=== PATIENT | female | born 1970 | race Hispanic/Latino ===

== ENCOUNTER 2019-11-20 11:47 | Inpatient (IN) | payer MEDICAID ==
[~2019-11-20] VITALS: Ht 160 cm; Wt 153.1 kg
[2019-11-20 12:21] LABS: BASOPHILS % (AUTO) 0.4 % (0.0-5.0); EOSINOPHILS % (AUTO) 2.1 % (0.0-8.0); HEMATOCRIT 29.5 % (36-48); LYMPHOCYTES % (AUTO) 12.8 % (21.0-51.0); MEAN CORPUSCULAR HEMOGLOBIN 25.5 pg (27.0-33.0); MEAN CORPUSCULAR HGB CONC 30.5 g/dL (32.0-36.0); MEAN CORPUSCULAR VOLUME 83.6 fL (79-99); MONOCYTES % (AUTO) 7.1 % (3.0-13.0); NEUTROPHILS % (AUTO) 77.1 % (40.0-77.0); PLATELET COUNT (AUTO) 404 K/uL (130-400); RED BLOOD CELL COUNT(AUTO) 3.53 MIL/uL (4.00-5.50); RED CELL DISTRIBUTION WIDTH 18.4 % (11.0-15.5); WHITE BLOOD COUNT (AUTO) 7.3 K/uL (4.8-10.8)
[2019-11-20 12:40] LABS: CREATININE 1.6 mg/dL (0.5-1.5); POTASSIUM 4.1 mmol/L (3.5-5.1)
[2019-11-20 12:42] LABS: ALBUMIN 1.5 g/dL (3.5-5.0); BILIRUBIN,TOTAL 0.2 mg/dL (0.2-1.0); TOTAL PROTEIN, SERUM 6.5 g/dL (6.0-8.3)
[2019-11-20 14:33] LABS: APPEARANCE,URINE Cloudy (CLEAR); BILIRUBIN,URINE Negative (NEGATIVE); COLOR,URINE Yellow (YELLOW); GLUCOSE, URINE (UA) 500 mg/dL (NEGATIVE); KETONES,URINE Negative (NEGATIVE); LEUKOCYTE ESTERASE ,URINE Moderate (NEGATIVE); NITRATE,URINE Negative (NEGATIVE); OCCULT BLOOD,URINE Small (NEGATIVE); PH,URINE 6.5 (5.0-8.0); PROTEIN,URINE >=1000 mg/dL (NEGATIVE)
[2019-11-20] MEDS ORDERED: ONDANSETRON HCL 4 MG/2 ML VIAL ONE (14:40)
[2019-11-20 14:41] LABS: AMPHET/METH SCREEN,URINE NEGATIVE (NEGATIVE); BARBITURATE SCREEN, URINE NEGATIVE (NEGATIVE); BENZODIAZEPINES SCREEN,URINE NEGATIVE (NEGATIVE); CANNABINOID SCREEN,URINE POSITIVE (NEGATIVE); COCAINE SCREEN,URINE NEGATIVE (NEGATIVE); OPIATE SCREEN,URINE NEGATIVE (NEGATIVE); PHENCYCLIDINE SCREEN,URINE NEGATIVE (NEGATIVE)
[2019-11-20] MEDS ORDERED: FAMOTIDINE/PF 20 MG/2 ML VIAL IV ONE (14:41)
[2019-11-20 15:17] LABS: BACTERIA,URINE Few /HPF (None Seen); WBC,URINE 26-50 /HPF (0-1)
[2019-11-20 15:18] LABS: SQUAMOUS EPITHELIAL CELL,UR Rare /HPF (0-2)
[2019-11-20] MEDS ORDERED: HYDRALAZINE HCL 20 MG/ML VIAL IV PRN (15:45)
[2019-11-20 18:37] LABS: HEMOGLOBIN A1C 9.4 % (4.0-6.0)
[2019-11-20] MEDS: LISINOPRIL 20 MG TABLET PO SCH (19:30)
[2019-11-20] MEDS: FUROSEMIDE 10 MG/ML 4ML VIAL IV SCH (19:30)
[2019-11-20] MEDS ORDERED: FUROSEMIDE 10 MG/ML 4ML VIAL ONE (20:09)
[2019-11-20] MEDS ORDERED: FUROSEMIDE 10 MG/ML 2ML VIAL IV SCH (21:00)
[2019-11-20] MEDS ORDERED: MORPHINE SULFATE 2 MG/ML 1ML SYG ONE (21:16)
--- NOTE | 2019-11-20 23:00 | NUR ---
PATIENT ADMITTED FROM THE ER. SHE VERBALIZES THAT SHE WAS DEPRESSED ON THURSDAY IN [facility] AND SHE WISHED THAT SHE WOULDN'T WAKE UP ANYMORE. SHE TOLD ME THAT SHE HAS A PLAN TO DRIVE HER FATHER'S CAR AND CRASH INTO A TREE TO KILL HERSELF. SPOKE WITH CLINICAL WRITER, LUIZ AND SHE TOLD ME TO CALL THE HOSPITALIST FOR AN ORDER OF 1:1 SITTER. SPOKE WITH JULIO GUTIERREZ AND SHE ORDERED A PSYCHOLOGY CONSULT WITH FERNANDO, PLACE HER ON A 1:1 SITTER, SHE RESUMED SOME OF HER MEDICATIONS, ORDERED XANAX FOR ANXIETY, AND LETS PATIENT USE CPAP FROM HOME.
[2019-11-20] MEDS: ENOXAPARIN SODIUM 30 MG/0.3 ML SQ SCH (23:10)
[2019-11-21] MEDS ORDERED: LOSA100T58 PO (00:08)
[2019-11-21] MEDS ORDERED: DICY10CA13 PO (00:08)
[2019-11-21] MEDS ORDERED: PANT40TA54 PO (00:08)
[2019-11-21] MEDS ORDERED: SERT100T12 PO (00:08)
[2019-11-21] MEDS ORDERED: TRAM50TA4 PO (00:08)
[2019-11-21] MEDS ORDERED: FERR159T2 PO (00:08)
[2019-11-21] MEDS ORDERED: FLUT16H NASAL (00:08)
[2019-11-21] MEDS ORDERED: FURO40TA5 PO (00:08)
[2019-11-21] MEDS ORDERED: PROM25TA7 PO (00:08)
[2019-11-21] MEDS ORDERED: AMLO10TA4 PO (00:08)
[2019-11-21] MEDS ORDERED: METF-446 PO (00:08)
[2019-11-21 00:18] VITALS: BP 160/81
[2019-11-21] MEDS ORDERED: FLUTICASONE PROPIONATE 50MCG/SPRAY 16 GM BOTTLE EN PRN (00:30)
[2019-11-21] MEDS ORDERED: ALPRAZOLAM 0.5 MG TABLET ONE (00:38)
[2019-11-21] MEDS ORDERED: ALPRAZOLAM 0.5 MG TABLET PO ONE (00:45)
[2019-11-21 03:21] VITALS: BP 120/63
[2019-11-21] MEDS: FUROSEMIDE 10 MG/ML 4ML VIAL IV SCH ×2 (05:39→18:14)
[2019-11-21 06:40] LABS: BASOPHILS % (AUTO) 0.3 % (0.0-5.0); EOSINOPHILS % (AUTO) 3.1 % (0.0-8.0); HEMATOCRIT 25.3 % (36-48); MEAN CORPUSCULAR HEMOGLOBIN 25.7 pg (27.0-33.0); MEAN CORPUSCULAR VOLUME 85.5 fL (79-99); MONOCYTES % (AUTO) 7.7 % (3.0-13.0); NEUTROPHILS % (AUTO) 69.2 % (40.0-77.0); PLATELET COUNT (AUTO) 358 K/uL (130-400); RED BLOOD CELL COUNT(AUTO) 2.96 MIL/uL (4.00-5.50); RED CELL DISTRIBUTION WIDTH 18.4 % (11.0-15.5); WHITE BLOOD COUNT (AUTO) 5.7 K/uL (4.8-10.8)
[2019-11-21 06:56] LABS: ALBUMIN 1.2 g/dL (3.5-5.0); BILIRUBIN,TOTAL 0.1 mg/dL (0.2-1.0); CREATININE 1.6 mg/dL (0.5-1.5); POTASSIUM 3.9 mmol/L (3.5-5.1); TOTAL PROTEIN, SERUM 5.5 g/dL (6.0-8.3)
[2019-11-21 07:14] VITALS: BP 123/65
[2019-11-21] MEDS ORDERED: METFORMIN HCL 500 MG TABLET PO SCH (07:15)
[2019-11-21] MEDS: LOSARTAN 100 MG TABLET PO SCH (08:50)
[2019-11-21] MEDS: FAMOTIDINE/PF 20 MG/2 ML VIAL IV SCH (08:50)
[2019-11-21] MEDS: LISINOPRIL 20 MG TABLET PO SCH (08:51)
[2019-11-21] MEDS: AMLODIPINE BESYLATE 5 MG TAB PO SCH (08:51)
[2019-11-21] MEDS: FERROUS SULFATE 325 MG TABLET.DR PO SCH (08:51)
[2019-11-21] MEDS: FUROSEMIDE 40 MG TABLET PO SCH ×2 (08:52→09:00)
[2019-11-21] MEDS: PANTOPRAZOLE SODIUM 40 MG TABLET.DR PO SCH (08:52)
[2019-11-21] MEDS: ENOXAPARIN SODIUM 30 MG/0.3 ML SQ SCH ×2 (08:53→09:00)
[2019-11-21] MEDS ORDERED: SERTRALINE HCL 50 MG TABLET PO SCH (09:00)
[2019-11-21 11:03] VITALS: BP 123/61
[2019-11-21 15:56] VITALS: BP 142/58
[2019-11-21] MEDS: CEFTRIAXONE SODIUM 1 GM IVP SCH (16:39)
--- NOTE | 2019-11-21 16:43 | NUR ---
DC PLAN VISITED WITH PATIENT. PATIENT LIVES WITH MOTHER AND BROTHER. DEPENDENT MOTHER IS PROVIDER DAILY. AVAILABLE DME: SABRA, MONISHA, STD WHEEL CHAIR, ELECTRIC WHEEL CHAIR, [facility] BED, SC, BSC, BIPAP, BP CUFF. PLAN IS FOR HOME ONCE BETTER. Addendum: 11/21/19 at 1645 by NARAYAN BETANCOURT RN CM Amended: Links added.
[2019-11-21] MEDS: TRAMADOL HCL 50 MG TABLET PO PRN (17:12)
[2019-11-21 17:23] LABS: APPEARANCE,URINE Turbid (CLEAR); BILIRUBIN,URINE Negative (NEGATIVE); COLOR,URINE Yellow (YELLOW); GLUCOSE, URINE (UA) 250 mg/dL (NEGATIVE); KETONES,URINE Negative (NEGATIVE); LEUKOCYTE ESTERASE ,URINE Moderate (NEGATIVE); NITRATE,URINE Negative (NEGATIVE); OCCULT BLOOD,URINE Small (NEGATIVE); PH,URINE 5.5 (5.0-8.0); PROTEIN,URINE >=1000 mg/dL (NEGATIVE)
[2019-11-21 17:28] LABS: CREATININE,URINE RANDOM 39 mg/dL (30-135)
[2019-11-21 17:56] LABS: PROTEIN,URINE RANDOM 650.6 mg/dL (0-11.9)
[2019-11-21 18:03] LABS: BACTERIA,URINE Moderate /HPF (None Seen); MUCUS,URINE Few LPF (None Seen); SQUAMOUS EPITHELIAL CELL,UR 0-2 /HPF (0-2); WBC,URINE 26-50 /HPF (0-1)
[2019-11-21 20:00] VITALS: BP 154/74
[2019-11-21] MEDS: SERTRALINE HCL 50 MG TABLET PO SCH (20:29)
[2019-11-21] MEDS: MORPHINE SULFATE 2 MG/ML 1ML SYG IV PRN (22:34)
[2019-11-22] VITALS (7 sets, daily range): BP systolic 129–151; BP diastolic 71–82
[2019-11-22 05:32] LABS: BASOPHILS % (AUTO) 0.3 % (0.0-5.0); EOSINOPHILS % (AUTO) 2.7 % (0.0-8.0); HEMATOCRIT 24.6 % (36-48); LYMPHOCYTES % (AUTO) 19.3 % (21.0-51.0); MEAN CORPUSCULAR HEMOGLOBIN 25.3 pg (27.0-33.0); MEAN CORPUSCULAR HGB CONC 29.7 g/dL (32.0-36.0); MEAN CORPUSCULAR VOLUME 85.4 fL (79-99); MONOCYTES % (AUTO) 8.9 % (3.0-13.0); NEUTROPHILS % (AUTO) 68.3 % (40.0-77.0); PLATELET COUNT (AUTO) 374 K/uL (130-400); RED BLOOD CELL COUNT(AUTO) 2.88 MIL/uL (4.00-5.50); RED CELL DISTRIBUTION WIDTH 18.4 % (11.0-15.5); WHITE BLOOD COUNT (AUTO) 5.9 K/uL (4.8-10.8)
[2019-11-22 06:25] LABS: ALBUMIN 1.2 g/dL (3.5-5.0); BILIRUBIN,TOTAL 0.1 mg/dL (0.2-1.0); CREATININE 1.7 mg/dL (0.5-1.5); MAGNESIUM 1.8 mg/dL (1.80-2.40); PHOSPHORUS 4.5 mg/dL (2.5-4.9); POTASSIUM 3.9 mmol/L (3.5-5.1); THYROID STIMULATING HORMONE 1.18 uIU/mL (0.36-3.74); TOTAL PROTEIN, SERUM 5.3 g/dL (6.0-8.3)
[2019-11-22] MEDS: FUROSEMIDE 10 MG/ML 4ML VIAL IV SCH (07:34)
[2019-11-22] MEDS: FAMOTIDINE/PF 20 MG/2 ML VIAL IV SCH (10:44)
[2019-11-22] MEDS: ENOXAPARIN SODIUM 30 MG/0.3 ML SQ SCH (10:44)
[2019-11-22] MEDS: Vitamin B Complex/Vit C/Folic Acid PO SCH (10:44)
[2019-11-22] MEDS: AMLODIPINE BESYLATE 5 MG TAB PO SCH (10:45)
[2019-11-22] MEDS: PANTOPRAZOLE SODIUM 40 MG TABLET.DR PO SCH (10:45)
[2019-11-22] MEDS: LOSARTAN 100 MG TABLET PO SCH (10:46)
[2019-11-22] MEDS: MORPHINE SULFATE 2 MG/ML 1ML SYG IV PRN (11:45)
[2019-11-22] MEDS: CEFTRIAXONE SODIUM 1 GM IVP SCH (15:37)
[2019-11-22] MEDS: METOPROLOL TARTRATE 25 MG TAB PO SCH (20:57)
[2019-11-22] MEDS: SERTRALINE HCL 50 MG TABLET PO SCH (20:57)
[2019-11-22] MEDS: ALPRAZOLAM 0.25 MG TABLET PO PRN (21:02)
[2019-11-22] MEDS: TRAMADOL HCL 50 MG TABLET PO PRN (21:03)
[2019-11-23] MEDS: MORPHINE SULFATE 2 MG/ML 1ML SYG IV PRN (01:36)
[2019-11-23 04:00] VITALS: BP 127/64
[2019-11-23 05:43] LABS: HEMATOCRIT 24.4 % (36-48); MEAN CORPUSCULAR HEMOGLOBIN 25.3 pg (27.0-33.0); MEAN CORPUSCULAR HGB CONC 29.9 g/dL (32.0-36.0); MEAN CORPUSCULAR VOLUME 84.4 fL (79-99); PLATELET COUNT (AUTO) 353 K/uL (130-400); RED BLOOD CELL COUNT(AUTO) 2.89 MIL/uL (4.00-5.50); RED CELL DISTRIBUTION WIDTH 18.5 % (11.0-15.5); WHITE BLOOD COUNT (AUTO) 5.1 K/uL (4.8-10.8)
[2019-11-23 05:50] LABS: EOSINOPHILS % (MANUAL) 4 % (1-6); LYMPHOCYTES % (MANUAL) 24 % (22-44); MAN.DIFF COMMENT-IMPRESSION MANUAL DIFFERENTIAL; PLATELET MORPHOLOGY COMMENT ADEQUATE; SEGMENTED NEUTROPHILS % 72 % (40-70)
[2019-11-23 05:58] LABS: ALBUMIN 1.3 g/dL (3.5-5.0); BILIRUBIN,TOTAL 0.1 mg/dL (0.2-1.0); CREATININE 1.6 mg/dL (0.5-1.5); POTASSIUM 4.1 mmol/L (3.5-5.1); TOTAL PROTEIN, SERUM 5.7 g/dL (6.0-8.3)
[2019-11-23] MEDS ORDERED: FLUTICASONE PROPIONATE 50MCG/SPRAY 16 GM BOTTLE EN PRN (06:30)
[2019-11-23 07:30] VITALS: BP 152/77
[2019-11-23] MEDS: LOSARTAN 100 MG TABLET PO SCH (08:34)
[2019-11-23] MEDS: Vitamin B Complex/Vit C/Folic Acid PO SCH (08:34)
[2019-11-23] MEDS: METFORMIN HCL 500 MG TABLET PO SCH ×2 (08:34→16:32)
[2019-11-23] MEDS: FERROUS SULFATE 325 MG TABLET.DR PO SCH (08:35)
[2019-11-23] MEDS: METOPROLOL TARTRATE 25 MG TAB PO SCH ×2 (08:35→20:29)
[2019-11-23] MEDS: AMLODIPINE BESYLATE 5 MG TAB PO SCH (08:35)
[2019-11-23] MEDS: FUROSEMIDE 40 MG TABLET PO SCH ×2 (08:35→16:32)
[2019-11-23] MEDS: PANTOPRAZOLE SODIUM 40 MG TABLET.DR PO SCH (08:35)
[2019-11-23] MEDS: FAMOTIDINE/PF 20 MG/2 ML VIAL IV SCH (08:35)
[2019-11-23] MEDS: ENOXAPARIN SODIUM 30 MG/0.3 ML SQ SCH (08:36)
[2019-11-23] MEDS: TRAMADOL HCL 50 MG TABLET PO PRN (08:54)
[2019-11-23 11:00] VITALS: BP 145/77
[2019-11-23] MEDS ORDERED: FURO40TA5 PO (13:41)
[2019-11-23] MEDS ORDERED: CEPH500B PO (13:44)
--- NOTE | 2019-11-23 14:10 | NUR ---
NUTRITION EDUCATION Pt with MD at initial visit/indisposed at 2nd visit. Pending discharge per RN. ALEJANDRA provided CHF/Diabetes/Renal Nutrition Education with reference materials and handouts. RN notified. Placed in Pt chart. Addendum: 11/23/19 at [address] Amended: Links added.
--- NOTE | 2019-11-23 14:12 | NUR ---
GRAHAM PLAN VISITED WITH PATIENT. DISCUSSED MEDICATIONS AND BIPAP MACHINE. SAID THAT SHE DID NOT SUPERVISOR [employer] MEDS BECAUSE THEY COULD NOT FIND HER INSURANCE AND WHEN SHE CALLED THEY HUNG UP ON HER SO SHE DID NOT FOLLOW UP. I CALLED [facility] SAID THEY HAD SCRIPTS FROM LAST WEEK READY FOR SUPER[employer]OR [employer]. COPAY WAS 12 DOLLARS. SPOKE TO PATIENT LET HER KNOW. SAID [facility] WILL HAVE SPOUSE SUPERVISOR ST[employer] SCRIPTS. CALLED [facility] ASKED IF THEY TAKE HER INSURANCE FOR PT SAID NO. SPOKE TO HER REGARDING BIPAP. SAID SHE DOES USE IT. SHE HAD TOLD DR. MCGEE THAT SHE DID NOT. SAID SHE HAS BEEN AND DOES NOT KNOW WHY HE SAID THAT. VERBALIZED INPORTANCE OF COMPLIANCE WITH MEDICATIONS AND BIPAP MACHINE. DR. MACE STARTED HER ON ANTIDEPRESSANT AND XANAX. PURPLE SCRIPT WRITTEN. Addendum: 11/23/19 at 1433 by NARAYAN BETANCOURT RN CM Amended: Links added.
[2019-11-23 16:00] VITALS: BP 143/79
--- NOTE | 2019-11-23 16:00 | NUR ---
D/C PAPERWORK COMPLETE, PT NOT READY TO LEAVE FAR TRANSPORTATION GOES; SHE STATES SHE CAN ONLY GET HOME BY EMS AND TO HER DR'S APPOINTMENTS; I HAVE SPOKEN TO RIMA BUSCH AND SHE CAME AND SAW PT AND IS MAKING ARRANGEMENTS FOR EMS TRANSPORT; NOTE THAT PT DID SAY THAT SHE CAN TRAVEL BY CAR BUT DOES NOT HAVE ENOUGH HELP TO GET INTO AND OUT OF THE CAR WITH JUST HER ALONE AND HAS NOT BEEN ABLE TO GET HELP TO BE ABLE TO MAKE IT TO HER MD FOLLOW UP APPOINTMENTS. SHE WANTS EMS TO TAKE HER TO HER APPOINTMENTS.
[2019-11-23] MEDS: CEFTRIAXONE SODIUM 1 GM IVP SCH (16:32)
--- NOTE | 2019-11-23 17:04 | NUR ---
[place] PLAN NURSE CALLED SAID PATIENT REQUESTING EMS. SPOKE TO PATIENT REGARDING TRANSPORT. EXPLAINED INSURANCE MIGHT NOT COVER AND WOULD SHE BE OKAY IF SHE GETS A BILL. VERBALIZED UNDERSTANDING SAID SHE GOT EMS LAST TIME SHE WENT HOME. TRIED TO SET UP MEDICAID TRANSPORT FOR DR. APPOINTMENTS SAID NO SHE NEEDS TO WAIT AND SEE BECAUSE IF HER KNEE IS TO SWOLLEN THEN SHE CAN NOT GET IN WHEEL CHAIR. ASKED HER ABOUT HER ELECTRIC WHEEL CHAIR SAID BATTERY NOT WORKING. ASKED WHEN SHE KNEW THAT SAID TWO THREE WEEKS AGO. ASKED IF SHE CALLED TO REPLACE SAID SHE WILL WORK ON IT. SPOUSE IS ABLE TO TRANSPORT HER VIA REGULAR WHEEL CHAIR AND DOES SO FREQUENTLY. SAID HE CAN NOT CUSTOMS INVESTIGATOR OR TAKE HER TO HER DOCTOR APPOINTMENTS BECAUSE HE WORKS 7 DAYS WEEK. I ASKED IF HE COULD ASK FOR A DAY OF AND HAVE HER APPOINTMENTS SAID SHE WOULD THINK ABOUT IT. GAVE HER NUMBER TO MEDICAID LET HER KNOW THAT SHE NEEDS TO CALL 3 DAYS IN ADVANCE TO SET UP APPOINTMENT AND NEEDS TO BE ABLE TO GO VIA WHEEL CHAIR. VERBALIZED UNDERSTANDING. EMS: INFO SENT TO [facility]. LET NURSE KNOW INFO SENT. NO AUTH OF YET. PATIENT AWARE. Addendum: 11/23/19 at 1718 by NARAYAN BETANCOURT RN CM Amended: Links added.
--- NOTE | 2019-11-23 17:18 | NUR ---
ems prepared but now pt is saying that her dae lift sling is missing; i have looked in her room and i am unable to find it; i have called housekeeping and then security to fill out an incident report; also dr diamond roche is here to see patient and he is going to change up her home medication regiment; awaiting his recomendations.
[2019-11-23] MEDS ORDERED: METO25TA6 PO (17:23)
[2019-11-23] MEDS ORDERED: LOSA100T58 PO (17:23)
--- NOTE | 2019-11-23 18:09 | NUR ---
pt stated understanding of all d/c instructions including not to go to see dr diamond roche tomorrow instead to see him in a month or 2 and to call and make the appointment; i have also called in all her perscriptions to [facility] and she is to go there to pick them up; she stated she was sending her mother to go pick them up; i instructed her to continue all her present home medications including losartan which had initially been marked to stop but dr diamond roche said no she needs to continue that per dr telly rubalcava's recomendations; ems will be coming to pick pt up; security came earlier and will cont to look for pt's missing dae lift sling.
[2019-11-23] MEDS: SERTRALINE HCL 50 MG TABLET PO SCH (20:29)
[2019-11-23] MEDS: ALPRAZOLAM 0.25 MG TABLET PO PRN (20:29)
--- NOTE | 2019-11-23 22:15 | NUR ---
DISCHARGE EMS HERE TO TRANSPORT PATIENT HOME WITH 02 AT 3LPM VIA NE. ALL BELONGINGS AND PAPERWORK AT SIDE OF PATIENT NO QUESTIONS OR CONCERNS AT THIS TIME.
[2020-01-06] MEDS ORDERED: ALPR-411 PO (03:48)
[2020-01-06] MEDS ORDERED: DICY20TA11 PO (03:48)
[2020-01-06] MEDS ORDERED: TRAM100T40 PO (03:48)
[2020-01-11] MEDS ORDERED: FURO40TA7 PO (19:37)
== END 2019-11-23 22:15 | disposition home or self-care (01) | DRG 194 ==
LOC: EDH 11:47 → EDHIP 11:48 → 3DH 21:32
PROVIDERS: ADMIT Hospitalist; ATTEND Hospitalist
PROC: 5A09357 Assistance with Respiratory Ventilation, Less than 24 Consecutive Hours, Continuous Positive Airway Pressure (ICD-10-PCS; principal; 2019-11-21)
PROC: 5A09357 Assistance with Respiratory Ventilation, Less than 24 Consecutive Hours, Continuous Positive Airway Pressure (ICD-10-PCS; 2019-11-22)
PROC: 5A09357 Assistance with Respiratory Ventilation, Less than 24 Consecutive Hours, Continuous Positive Airway Pressure (ICD-10-PCS; 2019-11-23)
DX: I13.0 Hypertensive heart and chronic kidney disease with heart failure and stage 1 through stage 4 chronic kidney disease, or unspecified chronic kidney disease (principal); J96.91 Respiratory failure, unspecified with hypoxia; I27.20 Pulmonary hypertension, unspecified; N17.9 Acute kidney failure, unspecified; E43 Unspecified severe protein-calorie malnutrition; D58.9 Hereditary hemolytic anemia, unspecified; E66.2 Morbid (severe) obesity with alveolar hypoventilation; L03.311 Cellulitis of abdominal wall; N39.0 Urinary tract infection, site not specified; F32.1 Major depressive disorder, single episode, moderate; Z68.43 Body mass index [BMI] 50.0-59.9, adult; I50.33 Acute on chronic diastolic (congestive) heart failure; E11.22 Type 2 diabetes mellitus with diabetic chronic kidney disease; D64.9 Anemia, unspecified; F12.90 Cannabis use, unspecified, uncomplicated; J44.9 Chronic obstructive pulmonary disease, unspecified; N18.3 Chronic kidney disease, stage 3 (moderate); Z79.84 Long term (current) use of oral hypoglycemic drugs; Z79.899 Other long term (current) drug therapy; Z90.49 Acquired absence of other specified parts of digestive tract; D50.9 Iron deficiency anemia, unspecified; E78.5 Hyperlipidemia, unspecified; E87.5 Hyperkalemia; F17.200 Nicotine dependence, unspecified, uncomplicated; G47.33 Obstructive sleep apnea (adult) (pediatric); J98.11 Atelectasis; K57.30 Diverticulosis of large intestine without perforation or abscess without bleeding; M47.815 Spondylosis without myelopathy or radiculopathy, thoracolumbar region; Z79.01 Long term (current) use of anticoagulants; Z87.441 Personal history of nephrotic syndrome; Z91.14 Patient's other noncompliance with medication regimen; F32.9 Major depressive disorder, single episode, unspecified; Z88.1 Allergy status to other antibiotic agents; Z88.8 Allergy status to other drugs, medicaments and biological substances; E11.51 Type 2 diabetes mellitus with diabetic peripheral angiopathy without gangrene; I35.0 Nonrheumatic aortic (valve) stenosis
CPT/HCPCS: 36415; 71045; 74176; 80053; 80305; 81001; 82570; 82948; 83036; 83605; 83690; 83735; 83880; 84100; 84156; 84443; 84540; 84550; 85025; 86038; 86160; 87077; 87088; 87186; 93005; 93306; 93356; G0378; J0360; J0696; J1650; J1940; J2405; J3490

== ENCOUNTER 2020-01-05 17:44 | Inpatient (IN) | payer MEDICAID ==
[~2020-01-05] VITALS: Ht 160 cm; Wt 177.0 kg
[~2020-01-05 17:44] MED LIST: AMLO10TA4 PO; CEPH500B PO; DICY10CA13 PO; FERR159T2 PO; FLUT16H NASAL; FURO40TA5 PO; LOSA100T58 PO; METF-446 PO; METO25TA6 PO; PANT40TA54 PO; PROM25TA7 PO; SERT100T12 PO; TRAM50TA4 PO
[2020-01-05 19:12] LABS: BASOPHILS % (AUTO) 0.5 % (0.0-5.0); EOSINOPHILS % (AUTO) 2.6 % (0.0-8.0); HEMATOCRIT 26.2 % (36-48); LYMPHOCYTES % (AUTO) 20.4 % (21.0-51.0); MEAN CORPUSCULAR HEMOGLOBIN 26.6 pg (27.0-33.0); MEAN CORPUSCULAR HGB CONC 30.5 g/dL (32.0-36.0); MONOCYTES % (AUTO) 7.8 % (3.0-13.0); NEUTROPHILS % (AUTO) 68.2 % (40.0-77.0); PLATELET COUNT (AUTO) 314 K/uL (130-400); RED BLOOD CELL COUNT(AUTO) 3.01 MIL/uL (4.00-5.50); RED CELL DISTRIBUTION WIDTH 21.9 % (11.0-15.5); WHITE BLOOD COUNT (AUTO) 6.3 K/uL (4.8-10.8)
[2020-01-05 19:28] LABS: INR 0.93 (0.85-1.15); PARTIAL THROMBOPLASTIN TIME 28.5 SEC (26.3-35.5); PROTHROMBIN TIME 10.1 SEC (9.6-11.6)
[2020-01-05 19:30] LABS: CARBON DIOXIDE 22 mmol/L (21-32); CHLORIDE 107 mmol/L (101-111); CREATININE 1.8 mg/dL (0.5-1.5); GLOMERULAR FILTR. RATE CALC 32 mL/min (>60); GLUCOSE,RANDOM 136 mg/dL (70-105); POTASSIUM 5.7 mmol/L (3.5-5.1); SODIUM SERUM 138 mmol/L (136-145); UREA NITROGEN, BLOOD 34 mg/dL (7-18)
[2020-01-05 19:35] LABS: B-TYPE NATRIURETIC PEPTIDE 1840 pg/mL (0-100)
[2020-01-05 19:41] LABS: ALANINE AMINOTRANSFERASE 11 U/L (12-78); ALBUMIN 1.8 g/dL (3.5-5.0); ASPARTATE AMINOTRANSFERASE 18 U/L (10-37); BILIRUBIN,TOTAL 0.2 mg/dL (0.2-1.0); CREATINE KINASE, TOTAL 60 U/L (21-232); MYOGLOBIN 55 ng/mL (10-92); TOTAL PROTEIN, SERUM 6.2 g/dL (6.0-8.3); TROPONIN I < 0.04 ng/mL (0.00-0.06)
[2020-01-05 21:25] LABS: ABG HCO3 19.5 mmol/L (21.0-28.0); ABG OXYGEN SATURATION 97.9 % (95.0-99.0); ABG PCO2 39 mmHg (32-45)
[2020-01-05] MEDS ORDERED: FUROSEMIDE 10 MG/ML 2ML VIAL ONE (22:50)
[2020-01-05] MEDS ORDERED: ONDANSETRON HCL 4 MG/2 ML VIAL IV PRN (23:15)
[2020-01-05] MEDS: HEPARIN SODIUM 5000UNIT/ML 1ML VIAL SQ SCH (23:15)
[2020-01-05] MEDS: FUROSEMIDE 10 MG/ML 4ML VIAL IV SCH (23:15)
[2020-01-05] MEDS ORDERED: ACETAMINOPHEN 325 MG TAB PO PRN (23:15)
[2020-01-05] MEDS ORDERED: ERGOCALCIFEROL (VITAMIN D2) 50,000 UNIT CAPSULE PO ONE (23:15)
[2020-01-05] MEDS ORDERED: GLUCAGON 1MG KIT 1 MG ML IM PRN (23:30)
[2020-01-05] MEDS ORDERED: DEXTROSE 50%-WATER 50 ML DISP.SYRIN IV PRN (23:30)
[2020-01-06] MEDS ORDERED: ERGOCALCIFEROL (VITAMIN D2) 50,000 UNIT CAPSULE ONE (00:36)
[2020-01-06] MEDS ORDERED: ACETAMINOPHEN 325 MG TAB ONE (00:37)
[2020-01-06] MEDS ORDERED: HEPARIN SODIUM 5000UNIT/ML 1ML VIAL ONE (00:37)
[2020-01-06 01:40] VITALS: BP 134/72
--- NOTE | 2020-01-06 02:00 | NUR ---
Patient advised to have SCD on instructed the reason for the SCD, she verbalized understanding, but stated she did not want them on. Patient stated she would sign a refusal paper due to the leg compression make her anxious.
[2020-01-06] MEDS ORDERED: FURO20TA4 PO (03:48)
[2020-01-06] MEDS ORDERED: TRAM100T40 PO ×2 (03:48)
[2020-01-06] MEDS ORDERED: ALPR-411 PO ×2 (03:48)
[2020-01-06] MEDS ORDERED: DICY20TA11 PO ×2 (03:48)
[2020-01-06 04:28] VITALS: BP 146/81
[2020-01-06] MEDS: INSULIN HUMULIN R 100 UNIT/ML 3ML SQ SCH ×4 (05:52→21:17)
[2020-01-06 06:51] LABS: BASOPHILS % (AUTO) 0.4 % (0.0-5.0); EOSINOPHILS % (AUTO) 2.2 % (0.0-8.0); HEMATOCRIT 25.4 % (36-48); MEAN CORPUSCULAR HEMOGLOBIN 25.9 pg (27.0-33.0); MEAN CORPUSCULAR HGB CONC 29.9 g/dL (32.0-36.0); MEAN CORPUSCULAR VOLUME 86.7 fL (79-99); MONOCYTES % (AUTO) 7.9 % (3.0-13.0); NEUTROPHILS % (AUTO) 68.9 % (40.0-77.0); PLATELET COUNT (AUTO) 271 K/uL (130-400); RED BLOOD CELL COUNT(AUTO) 2.93 MIL/uL (4.00-5.50); RED CELL DISTRIBUTION WIDTH 21.6 % (11.0-15.5); WHITE BLOOD COUNT (AUTO) 5.4 K/uL (4.8-10.8)
[2020-01-06 07:36] LABS: ALANINE AMINOTRANSFERASE 11 U/L (12-78); ALBUMIN 1.6 g/dL (3.5-5.0); ASPARTATE AMINOTRANSFERASE 14 U/L (10-37); BILIRUBIN,TOTAL 0.3 mg/dL (0.2-1.0); CARBON DIOXIDE 22 mmol/L (21-32); CHLORIDE 108 mmol/L (101-111); CREATININE 1.7 mg/dL (0.5-1.5); GLOMERULAR FILTR. RATE CALC 34 mL/min (>60); GLUCOSE,RANDOM 115 mg/dL (70-105); LACTATE DEHYDROGENASE 129 U/L (81-234); POTASSIUM 5.5 mmol/L (3.5-5.1); SODIUM SERUM 140 mmol/L (136-145); TOTAL PROTEIN, SERUM 5.5 g/dL (6.0-8.3); UREA NITROGEN, BLOOD 33 mg/dL (7-18)
[2020-01-06 08:42] VITALS: BP 169/84
[2020-01-06] MEDS: ZINC SULFATE 220 CAPSULE PO SCH (09:00)
[2020-01-06] MEDS: FAMOTIDINE/PF 20 MG/2 ML VIAL IV SCH ×2 (09:00→20:38)
[2020-01-06] MEDS: ASCORBIC ACID 500 MG TAB PO SCH (09:00)
--- NOTE | 2020-01-06 09:25 | NUR ---
DR. PADMA VIVAS ROUNDING AND HERE TO SEE PATIENT REGARDING NEW CONSULT. Addendum: 01/06/20 at 1422 by KULIDP ROMO RN RN INCORRECT TIME ROUNDED AROUND 1400 TODAY 01/06/2020
--- NOTE | 2020-01-06 10:40 | NUR ---
RD NOTIFICATION Pt admitted with Acute on chronic Kidney Injury, CHF Exacerbation. Renal Non Dialysis, 75gm CC diet order, 1L Fluid Restriction in place. Serum K 5.5, Cr 1.7, GFR 34, Alb 1.6. Obesity Class III (BMI 71.1). Pt is bedbound as per EMR. R/L foot +2/+1 edema. Recommend continue current diet order. Recommend 60mL ProMod BID RD to continue to monitor. Please notify as additional nutrition concerns arise.
--- NOTE | 2020-01-06 10:54 | NUR ---
CHART CHECK COMPLETED. Pt IS A 49 Y.O. FEMALE ADMITTED SECONDARY TO ACUTE ON CHRONIC KIDNEY FAILURE, CHF EXACERBATION. Pt HAS A PAST MEDICAL HISTORY SIGNIFICANT FOR DM, HLD, CHRONIC BACK PAIN, BEDBOUND, GILLIAN, CHOLECYSTECTOMY, L BREAST BIOPSY, ABDOMINAL ABSCESS SX. Pt CURRENTLY ON REGULAR TEXTURE,THIN LIQUID DIET (RENAL NONDIALYSIS, HC75). PLEASE REQUEST FORMAL SKILLED SPEECH/SWALLOW EVALUATION IF Pt PRESENTS WITH +S/S OF ASPIRATION SUCH COUGH RESPONSE, THROAT CLEAR, OR WET VOCAL QUALITY DURING P.O. Addendum: 01/06/20 at 1059 by JULIANA DIXON, [facility] Amended: Links added.
[2020-01-06] MEDS: HEPARIN SODIUM 5000UNIT/ML 1ML VIAL SQ SCH ×2 (11:15→23:05)
[2020-01-06] MEDS: FUROSEMIDE 10 MG/ML 4ML VIAL IV SCH ×2 (11:15→23:04)
[2020-01-06 11:23] VITALS: BP 144/62
[2020-01-06 11:54] LABS: APPEARANCE,URINE Clear (CLEAR); BILIRUBIN,URINE Negative (NEGATIVE); COLOR,URINE Yellow (YELLOW); GLUCOSE, URINE (UA) 250 mg/dL (NEGATIVE); KETONES,URINE Negative (NEGATIVE); LEUKOCYTE ESTERASE ,URINE Small (NEGATIVE); NITRATE,URINE Negative (NEGATIVE); OCCULT BLOOD,URINE Moderate (NEGATIVE); PH,URINE 6.5 (5.0-8.0); PROTEIN,URINE >=1000 mg/dL (NEGATIVE)
[2020-01-06 12:10] LABS: BACTERIA,URINE Rare /HPF (None Seen); SQUAMOUS EPITHELIAL CELL,UR Rare /HPF (0-2)
[2020-01-06 15:24] LABS: PROTEIN,URINE RANDOM 1055.5 mg/dL (0-11.9)
[2020-01-06 17:04] VITALS: BP 169/82
[2020-01-06 20:00] VITALS: BP 161/76
[2020-01-06] MEDS: ALPRAZOLAM 1 MG TAB PO SCH (20:38)
[2020-01-06] MEDS: ACETAMINOPHEN 325 MG TAB PO PRN (20:51)
[2020-01-07] VITALS (7 sets, daily range): BP systolic 141–159; BP diastolic 74–92
[2020-01-07 06:19] LABS: BASOPHILS % (AUTO) 0.4 % (0.0-5.0); EOSINOPHILS % (AUTO) 3.5 % (0.0-8.0); LYMPHOCYTES % (AUTO) 24.8 % (21.0-51.0); MEAN CORPUSCULAR HEMOGLOBIN 26.8 pg (27.0-33.0); MEAN CORPUSCULAR HGB CONC 30.8 g/dL (32.0-36.0); MEAN CORPUSCULAR VOLUME 87.2 fL (79-99); MONOCYTES % (AUTO) 8.8 % (3.0-13.0); NEUTROPHILS % (AUTO) 62.3 % (40.0-77.0); PLATELET COUNT (AUTO) 276 K/uL (130-400); RED BLOOD CELL COUNT(AUTO) 2.98 MIL/uL (4.00-5.50); RED CELL DISTRIBUTION WIDTH 21.8 % (11.0-15.5); WHITE BLOOD COUNT (AUTO) 4.8 K/uL (4.8-10.8)
[2020-01-07] MEDS: INSULIN HUMULIN R 100 UNIT/ML 3ML SQ SCH ×4 (06:36→21:00)
[2020-01-07 07:04] LABS: ALANINE AMINOTRANSFERASE 11 U/L (12-78); ALBUMIN 1.5 g/dL (3.5-5.0); ASPARTATE AMINOTRANSFERASE 13 U/L (10-37); BILIRUBIN,TOTAL 0.3 mg/dL (0.2-1.0); CARBON DIOXIDE 24 mmol/L (21-32); CHLORIDE 108 mmol/L (101-111); CREATININE 1.8 mg/dL (0.5-1.5); GLOMERULAR FILTR. RATE CALC 32 mL/min (>60); GLUCOSE,RANDOM 93 mg/dL (70-105); LACTATE DEHYDROGENASE 120 U/L (81-234); PHOSPHORUS 5.7 mg/dL (2.5-4.9); POTASSIUM 5.2 mmol/L (3.5-5.1); SODIUM SERUM 137 mmol/L (136-145); THYROID STIMULATING HORMONE 2.05 uIU/mL (0.36-3.74); TOTAL PROTEIN, SERUM 5.4 g/dL (6.0-8.3); UREA NITROGEN, BLOOD 33 mg/dL (7-18); URIC ACID 6.9 mg/dL (2.6-7.2)
[2020-01-07 07:37] LABS: HEMOGLOBIN A1C 7.6 % (4.0-6.0)
[2020-01-07] MEDS: FAMOTIDINE/PF 20 MG/2 ML VIAL IV SCH ×2 (09:04→20:40)
[2020-01-07] MEDS: SERTRALINE HCL 50 MG TABLET PO SCH (09:10)
[2020-01-07] MEDS: FOLIC ACID/VITAMIN B COMP W-C 1 CAP TAB PO SCH (09:10)
[2020-01-07] MEDS: ASCORBIC ACID 500 MG TAB PO SCH (09:10)
[2020-01-07] MEDS: ALPRAZOLAM 1 MG TAB PO SCH ×2 (09:10→20:40)
[2020-01-07] MEDS: ZINC SULFATE 220 CAPSULE PO SCH (09:10)
[2020-01-07] MEDS: TRAMADOL HCL 50 MG TABLET PO SCH (09:11)
[2020-01-07] MEDS: FUROSEMIDE 10 MG/ML 4ML VIAL IV SCH ×2 (12:33→23:08)
[2020-01-07] MEDS ORDERED: SODIUM POLYSTYRENE SULFONATE 15 GM/60 ML ML PO SCH (13:45)
[2020-01-07] MEDS: HEPARIN SODIUM 5000UNIT/ML 1ML VIAL SQ SCH ×2 (13:57→23:08)
--- NOTE | 2020-01-07 16:22 | NUR ---
INITIAL SW spoke with patient's spouse, Ramiro Villarreal. Patient lives with spouse. No home health but does have PHC with [facility] X 28 hours a week. DME: BPM, glucometer (uses insulin), wheelchair, walker, O2 concentrator/portable. Spouse does not remember name of DME that supplies O2. Patient needs help with ADL's and does not drive. PCP is Dr. Shirley Stanton. Pharmacy is [facility] in [place]. DCP is home. Addendum: 01/07/20 at 1624 by [facility] Amended: Links added.
[2020-01-08 03:43] VITALS: BP 154/89
[2020-01-08 06:07] LABS: BASOPHILS % (AUTO) 0.4 % (0.0-5.0); EOSINOPHILS % (AUTO) 4.3 % (0.0-8.0); HEMATOCRIT 25.8 % (36-48); MEAN CORPUSCULAR HEMOGLOBIN 25.8 pg (27.0-33.0); MEAN CORPUSCULAR HGB CONC 29.1 g/dL (32.0-36.0); MEAN CORPUSCULAR VOLUME 88.7 fL (79-99); MONOCYTES % (AUTO) 8.6 % (3.0-13.0); NEUTROPHILS % (AUTO) 59.5 % (40.0-77.0); PLATELET COUNT (AUTO) 263 K/uL (130-400); RED BLOOD CELL COUNT(AUTO) 2.91 MIL/uL (4.00-5.50); RED CELL DISTRIBUTION WIDTH 21.8 % (11.0-15.5); WHITE BLOOD COUNT (AUTO) 5.4 K/uL (4.8-10.8)
[2020-01-08] MEDS: INSULIN HUMULIN R 100 UNIT/ML 3ML SQ SCH ×4 (06:39→21:00)
[2020-01-08 07:08] LABS: ALANINE AMINOTRANSFERASE 11 U/L (12-78); ALBUMIN 1.5 g/dL (3.5-5.0); ASPARTATE AMINOTRANSFERASE 15 U/L (10-37); BILIRUBIN,TOTAL 0.2 mg/dL (0.2-1.0); CARBON DIOXIDE 25 mmol/L (21-32); CHLORIDE 109 mmol/L (101-111); CREATININE 1.8 mg/dL (0.5-1.5); GLOMERULAR FILTR. RATE CALC 32 mL/min (>60); GLUCOSE,RANDOM 98 mg/dL (70-105); LACTATE DEHYDROGENASE 109 U/L (81-234); POTASSIUM 4.8 mmol/L (3.5-5.1); SODIUM SERUM 139 mmol/L (136-145); TOTAL PROTEIN, SERUM 5.3 g/dL (6.0-8.3); UREA NITROGEN, BLOOD 33 mg/dL (7-18)
[2020-01-08] MEDS: FOLIC ACID/VITAMIN B COMP W-C 1 CAP TAB PO SCH (08:18)
[2020-01-08] MEDS: FAMOTIDINE/PF 20 MG/2 ML VIAL IV SCH ×2 (08:18→21:41)
[2020-01-08] MEDS: ASCORBIC ACID 500 MG TAB PO SCH (08:18)
[2020-01-08] MEDS: TRAMADOL HCL 50 MG TABLET PO SCH (08:19)
[2020-01-08] MEDS: ZINC SULFATE 220 CAPSULE PO SCH (08:19)
[2020-01-08] MEDS: SERTRALINE HCL 50 MG TABLET PO SCH (08:19)
[2020-01-08] MEDS: ALPRAZOLAM 1 MG TAB PO SCH ×2 (08:20→21:42)
[2020-01-08 08:43] VITALS: BP 142/79
[2020-01-08] MEDS ORDERED: ALBUTEROL INHALER 90MCG/INH IH PRN (11:00)
[2020-01-08] MEDS: FUROSEMIDE 10 MG/ML 4ML VIAL IV SCH ×2 (11:50→22:54)
[2020-01-08] MEDS: HEPARIN SODIUM 5000UNIT/ML 1ML VIAL SQ SCH ×2 (11:51→22:55)
[2020-01-08 11:58] VITALS: BP 160/79
[2020-01-08 17:31] VITALS: BP 153/81
--- NOTE | 2020-01-08 18:00 | NUR ---
RAPID RESULTS FOR COVID HAVE COME BACK AND SHE IS POSITIVE. NOTIFIED CARO WITH BENCHMARK AND SHE ORDERED ABG RESULTS WERE BACK AND SHE ORDERED O2@2LNC AND REPEAT ABG IN AM.
[2020-01-08 20:25] VITALS: BP 151/76
--- NOTE | 2020-01-08 20:40 | NUR ---
REPORT RECEIVED REPORT FROM ADAM PIERCE. PT RESTING IN BED SEEN VIA VIDEO CAM. Addendum: 01/09/20 at 0331 by VIRGILIO PAULSON RN RN Amended: Links added.
[2020-01-08] MEDS: GUAIFENESIN-DM 200/20 MG 10 ML PO PRN (21:42)
[2020-01-08 23:23] VITALS: BP 143/67
--- NOTE | 2020-01-09 02:00 | NUR ---
CHANGE PT HAD A LOOSE STOOL. CHANGED PT'S PAD AND DIAPER. RE-POSITIONED IN BED WITH HOB ELEVATED. ENCOURAGED TO REST AND SLEEP. CALL LIGHT WITHIN REACH. WILL MONITOR PT.
[2020-01-09 03:32] VITALS: BP 169/87
--- NOTE | 2020-01-09 04:00 | NUR ---
AIR BED PT'S AIR BED IS MAKING A WEIRD BEEPING AND UNABLE TO LOCATE PROBLEM TO STOP BEEPING. CALLED 1800 NUMBER FOR HELP. MORIS BESS [facility], CALLED BACK AND INSTRUCTED API DEVELOPER TO FIX THE PROBLEM.
[2020-01-09] MEDS: GUAIFENESIN-DM 200/20 MG 10 ML PO PRN (05:33)
--- NOTE | 2020-01-09 05:33 | NUR ---
MEDS DUE MEDS ADMINISTERED, TOLERATED WELL. KEPT COMFORTABLE WITH HOB ELEVATED ON HOME CPAP. FOR MORE CARE.
[2020-01-09 05:53] LABS: HEMATOCRIT 27.9 % (36-48); MEAN CORPUSCULAR HEMOGLOBIN 26.5 pg (27.0-33.0); MEAN CORPUSCULAR HGB CONC 29.4 g/dL (32.0-36.0); RED BLOOD CELL COUNT(AUTO) 3.1 MIL/uL (4.00-5.50); RED CELL DISTRIBUTION WIDTH 21.6 % (11.0-15.5); WHITE BLOOD COUNT (AUTO) 4.9 K/uL (4.8-10.8)
[2020-01-09] MEDS: INSULIN HUMULIN R 100 UNIT/ML 3ML SQ SCH ×4 (06:23→20:09)
[2020-01-09 06:30] LABS: ALBUMIN 1.5 g/dL (3.5-5.0); BILIRUBIN,TOTAL 0.2 mg/dL (0.2-1.0); CREATININE 1.8 mg/dL (0.5-1.5); POTASSIUM 4.9 mmol/L (3.5-5.1); TOTAL PROTEIN, SERUM 5.4 g/dL (6.0-8.3)
[2020-01-09 08:00] VITALS: BP 159/76
[2020-01-09] MEDS: ALPRAZOLAM 1 MG TAB PO SCH ×2 (10:25→20:51)
[2020-01-09] MEDS: ASCORBIC ACID 500 MG TAB PO SCH (10:26)
[2020-01-09] MEDS: TRAMADOL HCL 50 MG TABLET PO SCH (10:26)
[2020-01-09] MEDS: ZINC SULFATE 220 CAPSULE PO SCH (10:27)
[2020-01-09] MEDS: FOLIC ACID/VITAMIN B COMP W-C 1 CAP TAB PO SCH (10:27)
[2020-01-09] MEDS: FAMOTIDINE/PF 20 MG/2 ML VIAL IV SCH ×2 (10:27→20:51)
[2020-01-09] MEDS: SERTRALINE HCL 50 MG TABLET PO SCH (10:27)
--- NOTE | 2020-01-09 10:45 | NUR ---
PT NEGATIVE;COVID. TRANSFERRED TO 317 REGULAR MEDICAL FLOOR. REPORT GIVEN TO ADAM WEIR.
[2020-01-09 11:00] VITALS: BP 151/69
--- NOTE | 2020-01-09 12:50 | NUR ---
PT A TRANSFER FROM, ROOM ,332 , COVID NEG. TO ROOM 317. ORIENTATION TO ROOM AND CALL LIGHT. PT ON 2LITER NC . PT HASA ROM SPECIAL BED .. INFLATED FOR PT COMFORT CARE. CALL LIGHT IN REACH.. DENIES ANY SOB..
[2020-01-09] MEDS: FUROSEMIDE 10 MG/ML 4ML VIAL IV SCH ×2 (14:25→20:51)
[2020-01-09] MEDS: HEPARIN SODIUM 5000UNIT/ML 1ML VIAL SQ SCH ×2 (14:27→20:52)
--- NOTE | 2020-01-09 15:39 | NUR ---
CARDIAC CONSULTATION FOR CHF AND BNP. HE[facility] CL[facility]IC,
[2020-01-09 16:00] VITALS: BP 157/79
[2020-01-09 19:00] VITALS: BP 159/82
[2020-01-09] MEDS: LOSARTAN 100 MG TABLET PO SCH (20:51)
[2020-01-09] MEDS: AMLODIPINE BESYLATE 5 MG TAB PO SCH (20:51)
[2020-01-09] MEDS: METOPROLOL TARTRATE 25 MG TAB PO SCH (20:51)
[2020-01-10] VITALS: BP 141/75
[2020-01-10 04:00] VITALS: BP 146/77
[2020-01-10] MEDS: INSULIN HUMULIN R 100 UNIT/ML 3ML SQ SCH ×4 (06:36→21:00)
[2020-01-10 08:05] VITALS: BP 134/80
[2020-01-10] MEDS: METOPROLOL TARTRATE 25 MG TAB PO SCH ×2 (09:02→21:13)
[2020-01-10] MEDS: AMLODIPINE BESYLATE 5 MG TAB PO SCH (09:02)
[2020-01-10] MEDS: SERTRALINE HCL 50 MG TABLET PO SCH (09:02)
[2020-01-10] MEDS: ZINC SULFATE 220 CAPSULE PO SCH (09:02)
[2020-01-10] MEDS: LOSARTAN 100 MG TABLET PO SCH (09:02)
[2020-01-10] MEDS: FUROSEMIDE 10 MG/ML 4ML VIAL IV SCH ×2 (09:02→21:13)
[2020-01-10] MEDS: ASCORBIC ACID 500 MG TAB PO SCH (09:02)
[2020-01-10] MEDS: FOLIC ACID/VITAMIN B COMP W-C 1 CAP TAB PO SCH (09:02)
[2020-01-10] MEDS: ALPRAZOLAM 1 MG TAB PO SCH ×2 (09:02→21:13)
[2020-01-10] MEDS: TRAMADOL HCL 50 MG TABLET PO SCH (09:03)
[2020-01-10] MEDS: FAMOTIDINE/PF 20 MG/2 ML VIAL IV SCH ×2 (09:03→21:13)
[2020-01-10] MEDS: HEPARIN SODIUM 5000UNIT/ML 1ML VIAL SQ SCH ×2 (11:45→23:38)
[2020-01-10 12:28] VITALS: BP 146/85
[2020-01-10 13:30] LABS: CREATININE 1.8 mg/dL (0.5-1.5); POTASSIUM 4.6 mmol/L (3.5-5.1)
[2020-01-10 16:06] VITALS: BP 158/77
[2020-01-10 19:00] VITALS: BP 135/71
[2020-01-11] VITALS (7 sets, daily range): BP systolic 129–162; BP diastolic 66–85
[2020-01-11 06:39] LABS: HEMATOCRIT 26.8 % (36-48); MEAN CORPUSCULAR HEMOGLOBIN 26.5 pg (27.0-33.0); MEAN CORPUSCULAR HGB CONC 29.5 g/dL (32.0-36.0); MEAN CORPUSCULAR VOLUME 89.9 fL (79-99); RED BLOOD CELL COUNT(AUTO) 2.98 MIL/uL (4.00-5.50); RED CELL DISTRIBUTION WIDTH 21.7 % (11.0-15.5); WHITE BLOOD COUNT (AUTO) 4.3 K/uL (4.8-10.8)
[2020-01-11] MEDS: INSULIN HUMULIN R 100 UNIT/ML 3ML SQ SCH ×4 (06:46→21:00)
[2020-01-11 07:06] LABS: CREATININE 1.7 mg/dL (0.5-1.5); POTASSIUM 4.6 mmol/L (3.5-5.1)
[2020-01-11] MEDS: LOSARTAN 100 MG TABLET PO SCH (08:55)
[2020-01-11] MEDS: FAMOTIDINE/PF 20 MG/2 ML VIAL IV SCH ×2 (08:55→21:14)
[2020-01-11] MEDS: METOPROLOL TARTRATE 25 MG TAB PO SCH ×2 (08:55→21:14)
[2020-01-11] MEDS: FUROSEMIDE 10 MG/ML 4ML VIAL IV SCH ×2 (08:55→21:14)
[2020-01-11] MEDS: ZINC SULFATE 220 CAPSULE PO SCH (08:55)
[2020-01-11] MEDS: ASCORBIC ACID 500 MG TAB PO SCH (08:56)
[2020-01-11] MEDS: ALPRAZOLAM 1 MG TAB PO SCH ×2 (08:56→21:14)
[2020-01-11] MEDS: FOLIC ACID/VITAMIN B COMP W-C 1 CAP TAB PO SCH (08:56)
[2020-01-11] MEDS: AMLODIPINE BESYLATE 5 MG TAB PO SCH (08:56)
[2020-01-11] MEDS: SERTRALINE HCL 50 MG TABLET PO SCH (08:56)
[2020-01-11] MEDS: TRAMADOL HCL 50 MG TABLET PO SCH (08:58)
[2020-01-11] MEDS ORDERED: ALBUTEROL SULFATE 0.083% 2.5 MG/3 ML INH IH PRN (09:45)
--- NOTE | 2020-01-11 09:58 | NUR ---
smoking assessment: quit smoking 5 months ago. pt states she smoked 3-4 joints/day for 20 years Addendum: 01/11/20 at 0959 by PEG NORMAN RT Amended: Links added.
[2020-01-11] MEDS: GUAIFENESIN 600 MG TABLET.ER PO SCH ×2 (12:40→21:14)
[2020-01-11] MEDS: HEPARIN SODIUM 5000UNIT/ML 1ML VIAL SQ SCH ×2 (12:48→21:15)
[2020-01-11 13:39] LABS: % IRON SATURATION 31.8 % (22-44)
[2020-01-11] MEDS ORDERED: FURO40TA7 PO ×2 (19:37)
[2020-01-12 04:16] VITALS: BP 119/65
[2020-01-12] MEDS: INSULIN HUMULIN R 100 UNIT/ML 3ML SQ SCH ×2 (06:35→11:30)
[2020-01-12 08:00] VITALS: BP 133/76
[2020-01-12] MEDS: FAMOTIDINE/PF 20 MG/2 ML VIAL IV SCH (09:27)
[2020-01-12] MEDS: FUROSEMIDE 10 MG/ML 4ML VIAL IV SCH (09:27)
[2020-01-12] MEDS: ALPRAZOLAM 1 MG TAB PO SCH (10:11)
[2020-01-12] MEDS: ASCORBIC ACID 500 MG TAB PO SCH (10:11)
[2020-01-12] MEDS: ZINC SULFATE 220 CAPSULE PO SCH (10:11)
[2020-01-12] MEDS: AMLODIPINE BESYLATE 5 MG TAB PO SCH (10:11)
[2020-01-12] MEDS: TRAMADOL HCL 50 MG TABLET PO SCH (10:11)
[2020-01-12] MEDS: FOLIC ACID/VITAMIN B COMP W-C 1 CAP TAB PO SCH (10:11)
[2020-01-12] MEDS: SERTRALINE HCL 50 MG TABLET PO SCH (10:11)
[2020-01-12] MEDS: GUAIFENESIN 600 MG TABLET.ER PO SCH (10:12)
[2020-01-12] MEDS: LOSARTAN 100 MG TABLET PO SCH (10:12)
[2020-01-12] MEDS ORDERED: FUROSEMIDE 40 MG TABLET ONE (10:19)
[2020-01-12] MEDS: HEPARIN SODIUM 5000UNIT/ML 1ML VIAL SQ SCH (10:34)
[2020-01-12 11:00] VITALS: BP 149/77
[2020-01-12] MEDS: ACETAMINOPHEN 325 MG TAB PO PRN (12:46)
--- NOTE | 2020-01-12 13:25 | NUR ---
[facility] called and notified that patient in room 317 and ready to be picked up and transported home. Addendum: 01/12/20 at 1431 by KULDIP ROMO RN RN [facility] NOTIFIED AT THIS TIME THAT PATIENT REQUIRES BARIATRIC EQUIPMENT AND OXYGEN PER NC AT 2L.
--- NOTE | 2020-01-12 13:30 | NUR ---
DISCHARGE DISCHARGE TEACHING PROVIDED TO PATIENT REGARDING RX, NEED TO SCHEDULE F/U APPTS WITH PCP, DIANETICIST DR. RODAS, AND GUEST SERVICES AMBASSADOR DR. Rojelio MCGEE, HOME CARE MONITORING FOR CHF AND CHRONIC KIDNEY FAILURE. PATIENT VERBALIZED UNDERSTANDING OF DISCHARGE TEACHING. REMOVED 22G IV FROM LEFT UPPER CHEST, CATHETER TIP INTACT.
[2020-01-12] MEDS ORDERED: FUROSEMIDE 40 MG TABLET PO SCH (17:00)
[2020-01-12] MEDS ORDERED: LABETALOL HCL 100 MG TABLET PO SCH (21:00)
== END 2020-01-12 15:35 | disposition home or self-care (01) | DRG 194 ==
LOC: EDH 17:44 → EDHIP 17:45 → 3AH 01-06 01:05 → 3CH 01-09 11:12
PROVIDERS: ADMIT Internal Medicine; ATTEND Internal Medicine
DX: I13.0 Hypertensive heart and chronic kidney disease with heart failure and stage 1 through stage 4 chronic kidney disease, or unspecified chronic kidney disease (principal); N17.9 Acute kidney failure, unspecified; I50.33 Acute on chronic diastolic (congestive) heart failure; E87.5 Hyperkalemia; E11.22 Type 2 diabetes mellitus with diabetic chronic kidney disease; I45.10 Unspecified right bundle-branch block; E66.01 Morbid (severe) obesity due to excess calories; G47.33 Obstructive sleep apnea (adult) (pediatric); G89.29 Other chronic pain; E78.5 Hyperlipidemia, unspecified; D50.9 Iron deficiency anemia, unspecified; I08.0 Rheumatic disorders of both mitral and aortic valves; N04.9 Nephrotic syndrome with unspecified morphologic changes; N18.3 Chronic kidney disease, stage 3 (moderate); Z20.828 Contact with and (suspected) exposure to other viral communicable diseases; Z74.01 Bed confinement status; Z68.45 Body mass index [BMI] 70 or greater, adult; Z79.899 Other long term (current) drug therapy; Z99.81 Dependence on supplemental oxygen; Z87.441 Personal history of nephrotic syndrome; Z90.49 Acquired absence of other specified parts of digestive tract; Z88.2 Allergy status to sulfonamides; Z88.8 Allergy status to other drugs, medicaments and biological substances; Z83.3 Family history of diabetes mellitus; Z82.49 Family history of ischemic heart disease and other diseases of the circulatory system
CPT/HCPCS: 36415; 36600; 71045; 76770; 80048; 80053; 81001; 82550; 82570; 82728; 82803; 82948; 83036; 83540; 83550; 83605; 83615; 83735; 83874; 83880; 84100; 84145; 84156; 84443; 84484; 84550; 85025; 85027; 85378; 85610; 85730; 86140; 86900; 86901; 87040; 87088; 93005; 93971; 94664; G0378; J1644; J1815; J1940; J3490; U0003

== ENCOUNTER 2020-01-19 10:16 | Emergency (ER) | payer MEDICAID ==
[~2020-01-19 10:16] MED LIST changes: +ALPR-411 PO; -CEPH500B PO; -DICY10CA13 PO; +DICY20TA11 PO; -FURO40TA5 PO; +FURO40TA7 PO; -METF-446 PO; -METO25TA6 PO; +PANT40TA25 PO; -PANT40TA54 PO; +TRAM100T40 PO; -TRAM50TA4 PO
[2020-01-19 10:38] LABS: BASOPHILS % (AUTO) 0.4 % (0.0-5.0); EOSINOPHILS % (AUTO) 3.8 % (0.0-8.0); HEMATOCRIT 27.9 % (36-48); LYMPHOCYTES % (AUTO) 20.4 % (21.0-51.0); MEAN CORPUSCULAR HEMOGLOBIN 27.2 pg (27.0-33.0); MEAN CORPUSCULAR HGB CONC 30.5 g/dL (32.0-36.0); MEAN CORPUSCULAR VOLUME 89.1 fL (79-99); MONOCYTES % (AUTO) 7.7 % (3.0-13.0); NEUTROPHILS % (AUTO) 67.3 % (40.0-77.0); PLATELET COUNT (AUTO) 291 K/uL (130-400); RED BLOOD CELL COUNT(AUTO) 3.13 MIL/uL (4.00-5.50); RED CELL DISTRIBUTION WIDTH 21.7 % (11.0-15.5)
[2020-01-19 10:45] LABS: ABG BASE EXCESS -5.3 mmol/L (-2.0-3.0); ABG HCO3 20.3 mmol/L (21.0-28.0); ABG OXYGEN SATURATION 99.4 % (95.0-99.0); ABG PCO2 40 mmHg (32-45)
[2020-01-19 10:49] LABS: CREATININE 1.8 mg/dL (0.5-1.5); POTASSIUM 4.6 mmol/L (3.5-5.1)
[2020-01-19 10:50] LABS: INR 0.96 (0.85-1.15); PARTIAL THROMBOPLASTIN TIME 28.9 SEC (26.3-35.5); PROTHROMBIN TIME 10.4 SEC (9.6-11.6)
[2020-01-19] MEDS ORDERED: FUROSEMIDE 10 MG/ML 4ML VIAL ONE (10:50)
[2020-01-19 10:54] LABS: ALBUMIN 1.8 g/dL (3.5-5.0); BILIRUBIN,TOTAL 0.2 mg/dL (0.2-1.0)
[2020-01-19 11:05] LABS: B-TYPE NATRIURETIC PEPTIDE 1800 pg/mL (0-100)
[2020-01-19 11:09] LABS: APPEARANCE,URINE Cloudy (CLEAR); BILIRUBIN,URINE Negative (NEGATIVE); COLOR,URINE Yellow (YELLOW); GLUCOSE, URINE (UA) 250 mg/dL (NEGATIVE); KETONES,URINE Negative (NEGATIVE); LEUKOCYTE ESTERASE ,URINE Negative (NEGATIVE); NITRATE,URINE Negative (NEGATIVE); OCCULT BLOOD,URINE Trace (NEGATIVE); PH,URINE 5.5 (5.0-8.0); PROTEIN,URINE >=1000 mg/dL (NEGATIVE); UROBILINOGEN,URINE 0.2 mg/dL (0.2-1.0)
[2020-01-19 11:24] LABS: BACTERIA,URINE Many /HPF (None Seen); RBC,URINE 0-1 /HPF (0-1)
[2020-01-19 11:26] LABS: SQUAMOUS EPITHELIAL CELL,UR Rare /HPF (0-2)
[2020-01-19 11:27] LABS: MUCUS,URINE Rare LPF (None Seen)
[2020-01-19] MEDS ORDERED: AZITHROMYCIN 500MG+NS 250ML 250 ML IV ONE (12:32)
[2020-01-19] MEDS ORDERED: CEFTRIAXONE SODIUM 1 GM ONE (12:32)
--- NOTE | 2020-01-19 16:30 | NUR ---
CM NOTE/EMS NEW ORDER FOR NON EMERGENCY [facility] TRANSFER. REQUEST INITIATED AND FORMS SENT TO [facility] AT FAX# [phone]. [facility] MADE AWARE. PATIENT TO DISCHARGE TO HOME.
== END 2020-01-19 17:44 | disposition home or self-care (01) ==
LOC: EDH 10:16
DX: I50.23 Acute on chronic systolic (congestive) heart failure (principal); Z20.828 Contact with and (suspected) exposure to other viral communicable diseases; E11.9 Type 2 diabetes mellitus without complications; E78.5 Hyperlipidemia, unspecified; I10 Essential (primary) hypertension; Z90.49 Acquired absence of other specified parts of digestive tract; Z88.2 Allergy status to sulfonamides; Z88.1 Allergy status to other antibiotic agents; Z87.891 Personal history of nicotine dependence
CPT/HCPCS: 36415; 36600; 71045; 80053; 81001; 82803; 83880; 84484; 85025; 85610; 85730; 87077; 87088; 87186; 87426; 93005; 96365; 96375; 99285; J0456; J0696; J1940

== ENCOUNTER 2020-02-05 12:06 | Inpatient (IN) | payer MEDICAID ==
[~2020-02-05] VITALS: Ht 160 cm; Wt 114.3 kg
[~2020-02-05 12:06] MED LIST changes: -PANT40TA25 PO; +PANT40TA54 PO
[2020-02-05] MEDS ORDERED: ASPIRIN 325 MG TABLET ONE (12:37)
[2020-02-05] MEDS ORDERED: FUROSEMIDE 10 MG/ML 4ML VIAL ONE (12:37)
[2020-02-05 12:38] LABS: BASOPHILS % (AUTO) 0.3 % (0.0-5.0); EOSINOPHILS % (AUTO) 2.2 % (0.0-8.0); HEMATOCRIT 29.7 % (36-48); MEAN CORPUSCULAR VOLUME 90.3 fL (79-99); MONOCYTES % (AUTO) 9.6 % (3.0-13.0); NEUTROPHILS % (AUTO) 67.6 % (40.0-77.0); PLATELET COUNT (AUTO) 264 K/uL (130-400); RED BLOOD CELL COUNT(AUTO) 3.29 MIL/uL (4.00-5.50); RED CELL DISTRIBUTION WIDTH 19.6 % (11.0-15.5); WHITE BLOOD COUNT (AUTO) 3.7 K/uL (4.8-10.8)
[2020-02-05 12:40] LABS: POTASSIUM 4.8 mmol/L (3.5-5.1)
[2020-02-05 12:46] LABS: BILIRUBIN,TOTAL 0.2 mg/dL (0.2-1.0); TOTAL PROTEIN, SERUM 6.7 g/dL (6.0-8.3)
[2020-02-05 12:56] LABS: B-TYPE NATRIURETIC PEPTIDE 1460 pg/mL (0-100)
[2020-02-05 13:47] LABS: ABG BASE EXCESS -10.3 mmol/L (-2.0-3.0); ABG HCO3 16.8 mmol/L (21.0-28.0); ABG OXYGEN SATURATION 95.1 % (95.0-99.0); ABG PCO2 42 mmHg (32-45)
[2020-02-05] MEDS: FUROSEMIDE 10 MG/ML 4ML VIAL IV SCH (16:15)
[2020-02-05] MEDS ORDERED: ACETAMINOPHEN 325 MG TAB PO PRN (16:30)
--- NOTE | 2020-02-05 17:25 | NUR ---
ADMISSION FROM ER PER [facility] PT AAOX 3 REVIEW PLAN OF CARE CALLED RESP STAFF TO PLACE PT ON BIPAP FOR RESP ADMISSION DATA STARTED . CALL LIGHT IN REACH . DENIES ANY PAIN .STATED THAT SHE IS BREATHING BETTER THAN BEFORE
[2020-02-05] MEDS ORDERED: GLUCAGON 1MG KIT 1 MG ML IM PRN (17:30)
[2020-02-05 17:45] VITALS: BP 159/73
[2020-02-05 20:33] VITALS: BP 155/84
[2020-02-05] MEDS: INSULIN HUMULIN R 100 UNIT/ML 3ML SQ SCH (21:00)
[2020-02-05 23:45] VITALS: BP 152/66
[2020-02-06] MEDS ORDERED: METO25TA6 PO (02:05)
[2020-02-06] MEDS ORDERED: FURO20TA4 PO (02:05)
[2020-02-06] MEDS ORDERED: MORPHINE SULFATE 2 MG/ML 1ML SYG ONE (02:07)
[2020-02-06 03:29] VITALS: BP 149/79
[2020-02-06] MEDS: FUROSEMIDE 10 MG/ML 4ML VIAL IV SCH ×2 (05:29→17:27)
[2020-02-06 07:11] LABS: BASOPHILS % (AUTO) 0.4 % (0.0-5.0); EOSINOPHILS % (AUTO) 2.3 % (0.0-8.0); LYMPHOCYTES % (AUTO) 23.4 % (21.0-51.0); MEAN CORPUSCULAR HEMOGLOBIN 27.4 pg (27.0-33.0); MEAN CORPUSCULAR VOLUME 91.2 fL (79-99); MONOCYTES % (AUTO) 11.3 % (3.0-13.0); NEUTROPHILS % (AUTO) 61.8 % (40.0-77.0); PLATELET COUNT (AUTO) 201 K/uL (130-400); RED BLOOD CELL COUNT(AUTO) 2.85 MIL/uL (4.00-5.50); RED CELL DISTRIBUTION WIDTH 19.3 % (11.0-15.5); WHITE BLOOD COUNT (AUTO) 2.6 K/uL (4.8-10.8)
[2020-02-06 07:20] LABS: CREATININE 2.1 mg/dL (0.5-1.5); POTASSIUM 4.4 mmol/L (3.5-5.1)
[2020-02-06] MEDS: INSULIN HUMULIN R 100 UNIT/ML 3ML SQ SCH ×4 (07:30→21:00)
[2020-02-06 08:00] VITALS: BP 175/77
[2020-02-06 08:24] LABS: LYMPHOCYTES % (MANUAL) 23 % (22-44); MAN.DIFF COMMENT-IMPRESSION MANUAL DIFFERENTIAL; MONOCYTES % (MANUAL) 13 % (2-9); PLATELET MORPHOLOGY COMMENT ADEQUATE; SEGMENTED NEUTROPHILS % 64 % (40-70)
[2020-02-06 08:46] LABS: B-TYPE NATRIURETIC PEPTIDE 1220 pg/mL (0-100)
[2020-02-06] MEDS ORDERED: LOSARTAN 100 MG TABLET PO SCH (09:00)
[2020-02-06] MEDS: FAMOTIDINE 20MG TAB 20 MG TAB PO SCH (09:53)
[2020-02-06] MEDS: ENOXAPARIN SODIUM 30 MG/0.3 ML SQ SCH (09:53)
[2020-02-06] MEDS: MORPHINE SULFATE 2 MG/ML 1ML SYG IVP PRN ×2 (11:06→22:48)
[2020-02-06 12:00] VITALS: BP 161/79
[2020-02-06 16:00] VITALS: BP 165/70
--- NOTE | 2020-02-06 19:00 | NUR ---
cm note per patient's spouse, Ramiro Villarreal. Patient lives with spouse.requires assist wtih adls. has provider 28 hours a week. has wheelchair, walker, O2 concentrator/portable. unable to recall dme co for O2. DCP is home. Addendum: 02/06/20 at 1924 by GILBERTO JOHNSON CM Amended: Links added.
[2020-02-06 20:16] VITALS: BP 147/69
[2020-02-06 23:37] VITALS: BP 159/75
[2020-02-07 03:21] VITALS: BP 150/72
[2020-02-07] MEDS: FUROSEMIDE 10 MG/ML 4ML VIAL IV SCH ×2 (05:01→17:20)
[2020-02-07] MEDS: INSULIN HUMULIN R 100 UNIT/ML 3ML SQ SCH ×4 (05:18→21:00)
[2020-02-07 06:27] LABS: BASOPHILS % (AUTO) 0.3 % (0.0-5.0); EOSINOPHILS % (AUTO) 0.6 % (0.0-8.0); HEMATOCRIT 27.4 % (36-48); LYMPHOCYTES % (AUTO) 16.6 % (21.0-51.0); MEAN CORPUSCULAR HEMOGLOBIN 27.8 pg (27.0-33.0); MEAN CORPUSCULAR HGB CONC 30.3 g/dL (32.0-36.0); MEAN CORPUSCULAR VOLUME 91.6 fL (79-99); MONOCYTES % (AUTO) 8.4 % (3.0-13.0); NEUTROPHILS % (AUTO) 73.8 % (40.0-77.0); PLATELET COUNT (AUTO) 212 K/uL (130-400); RED BLOOD CELL COUNT(AUTO) 2.99 MIL/uL (4.00-5.50); RED CELL DISTRIBUTION WIDTH 19.4 % (11.0-15.5); WHITE BLOOD COUNT (AUTO) 3.2 K/uL (4.8-10.8)
[2020-02-07 06:39] LABS: ALANINE AMINOTRANSFERASE 14 U/L (12-78); ALBUMIN 1.8 g/dL (3.5-5.0); ASPARTATE AMINOTRANSFERASE 17 U/L (10-37); BILIRUBIN,TOTAL 0.1 mg/dL (0.2-1.0); CARBON DIOXIDE 20 mmol/L (21-32); CHLORIDE 111 mmol/L (101-111); CREATININE 2.1 mg/dL (0.5-1.5); GLOMERULAR FILTR. RATE CALC 27 mL/min (>60); GLUCOSE,RANDOM 96 mg/dL (70-105); LACTATE DEHYDROGENASE 154 U/L (81-234); POTASSIUM 4.5 mmol/L (3.5-5.1); SODIUM SERUM 142 mmol/L (136-145); UREA NITROGEN, BLOOD 44 mg/dL (7-18)
[2020-02-07 07:30] VITALS: BP 137/67
[2020-02-07] MEDS: FAMOTIDINE 20MG TAB 20 MG TAB PO SCH (09:07)
[2020-02-07] MEDS: ENOXAPARIN SODIUM 30 MG/0.3 ML SQ SCH (09:08)
[2020-02-07 11:00] VITALS: BP 139/64
[2020-02-07 16:00] VITALS: BP 160/64
[2020-02-07] MEDS: MORPHINE SULFATE 2 MG/ML 1ML SYG IVP PRN ×2 (17:43→22:15)
[2020-02-07 18:46] LABS: APPEARANCE,URINE Cloudy (CLEAR); BILIRUBIN,URINE Negative (NEGATIVE); COLOR,URINE Yellow (YELLOW); GLUCOSE, URINE (UA) TRACE mg/dL (NEGATIVE); KETONES,URINE Negative (NEGATIVE); LEUKOCYTE ESTERASE ,URINE Small (NEGATIVE); NITRATE,URINE Negative (NEGATIVE); OCCULT BLOOD,URINE Moderate (NEGATIVE); PH,URINE 5.5 (5.0-8.0); PROTEIN,URINE 300 mg/dL (NEGATIVE); UROBILINOGEN,URINE 0.2 mg/dL (0.2-1.0)
[2020-02-07 18:50] LABS: CREATININE,URINE RANDOM 15 mg/dL (30-135)
[2020-02-07 18:56] LABS: BACTERIA,URINE Many /HPF (None Seen); RBC,URINE None Seen /HPF (0-1); WBC,URINE 26-50 /HPF (0-1)
[2020-02-07 20:39] VITALS: BP 155/73
[2020-02-07 23:00] VITALS: BP 142/54
[2020-02-08 04:33] VITALS: BP_SYST 144; BP_SYST 145; BP_DIAS 62; BP_DIAS 76
[2020-02-08 07:07] LABS: EOSINOPHILS % (AUTO) 1.4 % (0.0-8.0); HEMATOCRIT 27.4 % (36-48); LYMPHOCYTES % (AUTO) 13.9 % (21.0-51.0); MEAN CORPUSCULAR HEMOGLOBIN 27.9 pg (27.0-33.0); MEAN CORPUSCULAR HGB CONC 30.7 g/dL (32.0-36.0); MONOCYTES % (AUTO) 7.5 % (3.0-13.0); NEUTROPHILS % (AUTO) 76.6 % (40.0-77.0); PLATELET COUNT (AUTO) 194 K/uL (130-400); RED BLOOD CELL COUNT(AUTO) 3.01 MIL/uL (4.00-5.50); RED CELL DISTRIBUTION WIDTH 19.1 % (11.0-15.5); WHITE BLOOD COUNT (AUTO) 3.5 K/uL (4.8-10.8)
[2020-02-08 07:30] LABS: ALANINE AMINOTRANSFERASE 12 U/L (12-78); ALBUMIN 1.6 g/dL (3.5-5.0); ASPARTATE AMINOTRANSFERASE 16 U/L (10-37); BILIRUBIN,TOTAL 0.2 mg/dL (0.2-1.0); CARBON DIOXIDE 19 mmol/L (21-32); CHLORIDE 111 mmol/L (101-111); CREATININE 1.9 mg/dL (0.5-1.5); GLOMERULAR FILTR. RATE CALC 30 mL/min (>60); GLUCOSE,RANDOM 86 mg/dL (70-105); LACTATE DEHYDROGENASE 121 U/L (81-234); PHOSPHORUS 5.7 mg/dL (2.5-4.9); POTASSIUM 4.5 mmol/L (3.5-5.1); SODIUM SERUM 141 mmol/L (136-145); TOTAL PROTEIN, SERUM 5.5 g/dL (6.0-8.3); UREA NITROGEN, BLOOD 43 mg/dL (7-18)
[2020-02-08 08:23] LABS: % IRON SATURATION 11.2 % (22-44)
[2020-02-08 08:36] VITALS: BP 160/71
[2020-02-08] MEDS: AMLODIPINE BESYLATE 5 MG TAB PO SCH (08:59)
[2020-02-08] MEDS: FAMOTIDINE 20MG TAB 20 MG TAB PO SCH (09:00)
[2020-02-08] MEDS ORDERED: ENOXAPARIN SODIUM 30 MG/0.3 ML SQ SCH (09:00)
[2020-02-08] MEDS: SERTRALINE HCL 50 MG TABLET PO SCH (09:01)
[2020-02-08] MEDS: METOPROLOL TARTRATE 25 MG TAB PO SCH ×2 (09:01→22:07)
[2020-02-08] MEDS: PANTOPRAZOLE SODIUM 40 MG TABLET.DR PO SCH (09:02)
[2020-02-08] MEDS: FOLIC ACID/VITAMIN B COMP W-C 1 CAP TAB PO SCH (09:02)
[2020-02-08] MEDS: FUROSEMIDE 10 MG/ML 4ML VIAL IV SCH ×2 (09:04→16:06)
[2020-02-08] MEDS: MORPHINE SULFATE 2 MG/ML 1ML SYG IVP PRN ×2 (10:03→23:35)
[2020-02-08] MEDS: ENOXAPARIN SODIUM 40 MG/0.4 ML SYRINGE SQ SCH (10:30)
[2020-02-08] MEDS: INSULIN HUMULIN R 100 UNIT/ML 3ML SQ SCH ×3 (11:30→21:00)
[2020-02-08 11:45] VITALS: BP 132/60
--- NOTE | 2020-02-08 15:30 | NUR ---
STATUS/DSG CHANGE PT GIVEN A BED BATH @ THIS TIME. ALLEVYN TO SACRAL REDNESS CHANGED. WOUND CARE CONSULT PLACED FOR REDNESS IN BETWEEN SKIN FOLDS. PT TOLERATED BED BATH & TURNING WELL, NO DISTRESS NOTED. PT ON BIPAP DURING BED BATH & DSG CHANGE.
[2020-02-08] MEDS ORDERED: PHARMACY COMMUNICATION MISC SCH (15:45)
[2020-02-08] MEDS ORDERED: COMPOUND IV MISC 1 EACH IVSOLN MISC PRN (16:30)
[2020-02-08 17:12] VITALS: BP 135/66
[2020-02-08 19:27] VITALS: BP 135/68
[2020-02-08] MEDS: IRON SUCROSE COMPLEX 300 MG in SODIUM CHLORIDE 0.9% 250 ML IV SCH (22:07)
[2020-02-08] MEDS: DICYCLOMINE HCL 20 MG TAB PO SCH (22:07)
[2020-02-08 23:00] VITALS: BP 128/67
--- NOTE | 2020-02-08 23:45 | NUR ---
LOOSE STOOL PATIENT WITH EPISODE OF LOOSE STOOL X4. SNACK FOODS MIXER OPERATOR BRINA VELA NP CALLED. ORDER GIVEN TO 1) OBTAIN STOOL FOR C-DIFF AND 2)STOOL CULTURE. STOOL OBTAINED AND SENT TO LAB. PATIENT CARE COMPLETED, BARRIER CREAM APPLIED TO BUTTOCKS . CALL DEVICE WITHIN REACH WILL CONT. TO MONITOR.
[2020-02-09] MEDS ORDERED: PHARMACY COMMUNICATION MISC SCH (03:00)
[2020-02-09 03:52] LABS: HEMATOCRIT 27.3 % (36-48); MEAN CORPUSCULAR HEMOGLOBIN 27.6 pg (27.0-33.0); MEAN CORPUSCULAR HGB CONC 30.8 g/dL (32.0-36.0); MEAN CORPUSCULAR VOLUME 89.8 fL (79-99); RED BLOOD CELL COUNT(AUTO) 3.04 MIL/uL (4.00-5.50); RED CELL DISTRIBUTION WIDTH 19.2 % (11.0-15.5); WHITE BLOOD COUNT (AUTO) 3.9 K/uL (4.8-10.8)
[2020-02-09 04:09] LABS: ALANINE AMINOTRANSFERASE 13 U/L (12-78); ALBUMIN 1.6 g/dL (3.5-5.0); ASPARTATE AMINOTRANSFERASE 13 U/L (10-37); BILIRUBIN,TOTAL 0.1 mg/dL (0.2-1.0); CARBON DIOXIDE 20 mmol/L (21-32); CHLORIDE 110 mmol/L (101-111); GLOMERULAR FILTR. RATE CALC 28 mL/min (>60); GLUCOSE,RANDOM 99 mg/dL (70-105); LACTATE DEHYDROGENASE 131 U/L (81-234); POTASSIUM 4.4 mmol/L (3.5-5.1); SODIUM SERUM 139 mmol/L (136-145); TOTAL PROTEIN, SERUM 5.5 g/dL (6.0-8.3); UREA NITROGEN, BLOOD 45 mg/dL (7-18)
[2020-02-09 04:18] VITALS: BP 134/63
[2020-02-09] MEDS ORDERED: VANCOMYCIN HCL 1 GM VIAL IV SCH (05:00)
[2020-02-09] MEDS: FUROSEMIDE 10 MG/ML 4ML VIAL IV SCH ×2 (06:01→16:42)
[2020-02-09] MEDS: INSULIN HUMULIN R 100 UNIT/ML 3ML SQ SCH ×4 (06:02→20:13)
[2020-02-09 07:41] VITALS: BP 135/63
[2020-02-09] MEDS ORDERED: COMPOUND PO MISCELLANEOUS 1 EACH MISC MISC PRN (08:15)
[2020-02-09] MEDS ORDERED: VANCOMYCIN 2 GM, SODIUM CHLORIDE 0.9% 80 ML PO SCH ×2 (08:15)
[2020-02-09] MEDS: FAMOTIDINE 20MG TAB 20 MG TAB PO SCH (09:00)
[2020-02-09] MEDS: FOLIC ACID/VITAMIN B COMP W-C 1 CAP TAB PO SCH (09:18)
[2020-02-09] MEDS: SERTRALINE HCL 50 MG TABLET PO SCH (09:19)
[2020-02-09] MEDS: PANTOPRAZOLE SODIUM 40 MG TABLET.DR PO SCH (09:19)
[2020-02-09] MEDS: AMLODIPINE BESYLATE 5 MG TAB PO SCH (09:19)
[2020-02-09] MEDS: METOPROLOL TARTRATE 25 MG TAB PO SCH ×2 (09:19→22:09)
[2020-02-09] MEDS: ENOXAPARIN SODIUM 40 MG/0.4 ML SYRINGE SQ SCH (09:20)
[2020-02-09 11:00] VITALS: BP 138/62
[2020-02-09 11:10] LABS: EOSINOPHILS % (AUTO) 2.9 % (0.0-8.0); HEMATOCRIT 26.8 % (36-48); LYMPHOCYTES % (AUTO) 13.3 % (21.0-51.0); MEAN CORPUSCULAR HEMOGLOBIN 27.8 pg (27.0-33.0); MEAN CORPUSCULAR HGB CONC 30.6 g/dL (32.0-36.0); MEAN CORPUSCULAR VOLUME 90.8 fL (79-99); MONOCYTES % (AUTO) 5.6 % (3.0-13.0); NEUTROPHILS % (AUTO) 77.7 % (40.0-77.0); PLATELET COUNT (AUTO) 193 K/uL (130-400); RED BLOOD CELL COUNT(AUTO) 2.95 MIL/uL (4.00-5.50); RED CELL DISTRIBUTION WIDTH 19.2 % (11.0-15.5); WHITE BLOOD COUNT (AUTO) 3.8 K/uL (4.8-10.8)
[2020-02-09] MEDS: MORPHINE SULFATE 2 MG/ML 1ML SYG IVP PRN ×2 (11:12→18:54)
--- NOTE | 2020-02-09 11:48 | NUR ---
[facility] consult Patient assessed as ordered. Blanchable redness noted to sacrum approx 10cms x 10cms and slight redness noted to intertriginous areas of pendulous abdomen. No open ulcer identified. [facility] recommendations submitted.
[2020-02-09] MEDS: VANCOMYCIN 2 GM, SODIUM CHLORIDE 0.9% 80 ML PO SCH ×6 (12:15→23:50)
--- NOTE | 2020-02-09 13:40 | NUR ---
RD NOTIFICATION Pt admitted with Acute on Chronic CHF. Severe Obesity Class III, BMI 77.2. Pt with 75gm CC diet order in place. No report of GI distress, PO intake at 100%. Monitored labs: BUN 45, Cr 2.0, GFR 28, Alb 1.6. Pt with 3+ edema. BiPAP in place. Recommend Renal Non Dialysis diet order Recommend 60mL ProMod BID RD to continue to monitor. Please notify as additional nutrition concerns arise. Thank you. Addendum: 02/09/20 at [address] Amended: Links added.
[2020-02-09] MEDS: LEVOFLOXACIN 500 MG TABLET PO SCH (14:22)
[2020-02-09 16:00] VITALS: BP 151/74
[2020-02-09 20:07] VITALS: BP 139/70
[2020-02-09] MEDS: IRON SUCROSE COMPLEX 300 MG in SODIUM CHLORIDE 0.9% 250 ML IV SCH (22:09)
[2020-02-09] MEDS: DICYCLOMINE HCL 20 MG TAB PO SCH (22:09)
[2020-02-09 23:24] VITALS: BP 141/71
[2020-02-10 03:58] VITALS: BP 123/60
[2020-02-10] MEDS: FUROSEMIDE 10 MG/ML 4ML VIAL IV SCH ×2 (05:00→17:13)
[2020-02-10] MEDS: INSULIN HUMULIN R 100 UNIT/ML 3ML SQ SCH ×4 (06:19→20:31)
[2020-02-10 06:42] LABS: MAGNESIUM 1.6 mg/dL (1.80-2.40); POTASSIUM 4.3 mmol/L (3.5-5.1)
[2020-02-10] MEDS: VANCOMYCIN 2 GM, SODIUM CHLORIDE 0.9% 80 ML PO SCH ×6 (06:45→17:13)
[2020-02-10 08:00] VITALS: BP 145/69
--- NOTE | 2020-02-10 09:00 | NUR ---
LAB CALL PLACED TO LAB REGARDING COVID PCR, PER STAFF, SPECIMEN IN PROCESS AND RESULTS TO RESULT TODAY THIS AFTERNOON.
[2020-02-10] MEDS: MAGNESIUM 2GM PREMIX 50ML 50 ML IV SCH (09:51)
[2020-02-10] MEDS: AMLODIPINE BESYLATE 5 MG TAB PO SCH (09:51)
[2020-02-10] MEDS: PANTOPRAZOLE SODIUM 40 MG TABLET.DR PO SCH (09:51)
[2020-02-10] MEDS: FAMOTIDINE 20MG TAB 20 MG TAB PO SCH (09:51)
[2020-02-10] MEDS: METOPROLOL TARTRATE 25 MG TAB PO SCH ×2 (09:51→21:32)
[2020-02-10] MEDS: SERTRALINE HCL 50 MG TABLET PO SCH (09:51)
[2020-02-10] MEDS: FOLIC ACID/VITAMIN B COMP W-C 1 CAP TAB PO SCH (09:52)
[2020-02-10] MEDS: ENOXAPARIN SODIUM 40 MG/0.4 ML SYRINGE SQ SCH (09:53)
[2020-02-10] MEDS: ZINC OXIDE OINT 56.7 GM TP SCH (09:53)
[2020-02-10] MEDS: MORPHINE SULFATE 2 MG/ML 1ML SYG IVP PRN ×2 (09:57→14:02)
[2020-02-10 11:00] VITALS: BP 128/62
[2020-02-10 16:00] VITALS: BP 140/68
[2020-02-10 19:49] VITALS: BP 130/67
[2020-02-10] MEDS: DICYCLOMINE HCL 20 MG TAB PO SCH (21:32)
[2020-02-10 23:45] VITALS: BP 128/65
[2020-02-11] MEDS: VANCOMYCIN 2 GM, SODIUM CHLORIDE 0.9% 80 ML PO SCH ×8 (00:17→17:16)
[2020-02-11 03:37] VITALS: BP 130/64
[2020-02-11] MEDS: FUROSEMIDE 10 MG/ML 4ML VIAL IV SCH ×2 (05:15→17:16)
[2020-02-11] MEDS: INSULIN HUMULIN R 100 UNIT/ML 3ML SQ SCH ×4 (06:06→20:24)
[2020-02-11 07:38] LABS: HEMATOCRIT 31.9 % (36-48); MEAN CORPUSCULAR HEMOGLOBIN 27.7 pg (27.0-33.0); MEAN CORPUSCULAR HGB CONC 30.4 g/dL (32.0-36.0); MEAN CORPUSCULAR VOLUME 91.1 fL (79-99); RED BLOOD CELL COUNT(AUTO) 3.5 MIL/uL (4.00-5.50); RED CELL DISTRIBUTION WIDTH 18.6 % (11.0-15.5); WHITE BLOOD COUNT (AUTO) 4.8 K/uL (4.8-10.8)
[2020-02-11 08:00] VITALS: BP 126/61
[2020-02-11 08:26] LABS: CREATININE 2.2 mg/dL (0.5-1.5); MAGNESIUM 1.9 mg/dL (1.80-2.40); POTASSIUM 4.3 mmol/L (3.5-5.1)
[2020-02-11] MEDS: AMLODIPINE BESYLATE 5 MG TAB PO SCH (09:10)
[2020-02-11] MEDS: METOPROLOL TARTRATE 25 MG TAB PO SCH ×2 (09:10→20:24)
[2020-02-11] MEDS: PANTOPRAZOLE SODIUM 40 MG TABLET.DR PO SCH (09:10)
[2020-02-11] MEDS: SERTRALINE HCL 50 MG TABLET PO SCH (09:10)
[2020-02-11] MEDS: FOLIC ACID/VITAMIN B COMP W-C 1 CAP TAB PO SCH (09:10)
[2020-02-11] MEDS: FAMOTIDINE 20MG TAB 20 MG TAB PO SCH (09:10)
[2020-02-11] MEDS: ZINC OXIDE OINT 56.7 GM TP SCH (09:11)
[2020-02-11] MEDS: ENOXAPARIN SODIUM 40 MG/0.4 ML SYRINGE SQ SCH (09:11)
[2020-02-11 12:00] VITALS: BP 125/60
[2020-02-11] MEDS: LEVOFLOXACIN 500 MG TABLET PO SCH (13:00)
[2020-02-11] MEDS: HYDROMORPHONE HCL 2 MG/ML VIAL IVP PRN ×2 (14:25→20:26)
[2020-02-11 16:00] VITALS: BP 120/58
[2020-02-11 19:29] VITALS: BP 131/65
[2020-02-11] MEDS: DICYCLOMINE HCL 20 MG TAB PO SCH (20:24)
[2020-02-11 23:40] VITALS: BP 107/67
[2020-02-12] MEDS: VANCOMYCIN 2 GM, SODIUM CHLORIDE 0.9% 80 ML PO SCH ×8 (00:37→16:12)
[2020-02-12] MEDS ORDERED: LORAZEPAM 2 MG/ML 1 ML VIAL ONE (01:29)
[2020-02-12 04:00] VITALS: BP 122/66
[2020-02-12] MEDS: FUROSEMIDE 10 MG/ML 4ML VIAL IV SCH ×2 (04:15→16:11)
[2020-02-12 06:05] VITALS: BP 122/60
[2020-02-12] MEDS: HYDROMORPHONE HCL 2 MG/ML VIAL IVP PRN ×2 (06:30→11:23)
[2020-02-12] MEDS: INSULIN HUMULIN R 100 UNIT/ML 3ML SQ SCH ×4 (06:59→20:26)
[2020-02-12 07:29] LABS: CREATININE 2.3 mg/dL (0.5-1.5); POTASSIUM 4.3 mmol/L (3.5-5.1)
[2020-02-12] MEDS: SERTRALINE HCL 50 MG TABLET PO SCH (08:42)
[2020-02-12] MEDS: FAMOTIDINE 20MG TAB 20 MG TAB PO SCH (08:42)
[2020-02-12] MEDS: FOLIC ACID/VITAMIN B COMP W-C 1 CAP TAB PO SCH (08:42)
[2020-02-12] MEDS: PANTOPRAZOLE SODIUM 40 MG TABLET.DR PO SCH (08:42)
[2020-02-12] MEDS: AMLODIPINE BESYLATE 5 MG TAB PO SCH (08:42)
[2020-02-12] MEDS: METOPROLOL TARTRATE 25 MG TAB PO SCH ×2 (08:43→20:20)
[2020-02-12] MEDS: ENOXAPARIN SODIUM 40 MG/0.4 ML SYRINGE SQ SCH (08:43)
[2020-02-12] MEDS: ZINC OXIDE OINT 56.7 GM TP SCH (08:44)
[2020-02-12 11:00] VITALS: BP 95/57
[2020-02-12] MEDS: TRAMADOL HCL 50 MG TABLET PO PRN ×2 (14:47→20:16)
[2020-02-12 16:00] VITALS: BP 128/62
[2020-02-12] MEDS: HYDROMORPHONE HCL 0.5 MG/0.5 ML ML IVP PRN (17:45)
[2020-02-12 20:00] VITALS: BP 124/63
[2020-02-12] MEDS: LORAZEPAM 2 MG/ML 1 ML VIAL IVP PRN (20:18)
[2020-02-12] MEDS: DICYCLOMINE HCL 20 MG TAB PO SCH (20:21)
[2020-02-12] MEDS ORDERED: HYDROMORPHONE HCL 2 MG/ML VIAL IVP ONE (22:00)
[2020-02-12] MEDS ORDERED: HYDROMORPHONE 1 MG/1 ML AMP ONE (22:01)
[2020-02-13] VITALS: BP 122/59
[2020-02-13] MEDS ORDERED: VANCOMYCIN 1GM+NS 250ML 250 ML IV ONE ×2 (00:22→04:07)
[2020-02-13] MEDS: VANCOMYCIN 2 GM, SODIUM CHLORIDE 0.9% 80 ML PO SCH ×8 (00:25→17:03)
[2020-02-13] MEDS ORDERED: SODIUM CHLORIDE 0.9% 250 ML IV ONE (00:31)
[2020-02-13 04:00] VITALS: BP 114/57
[2020-02-13] MEDS: FUROSEMIDE 10 MG/ML 4ML VIAL IV SCH ×2 (04:10→15:46)
[2020-02-13] MEDS: HYDROMORPHONE HCL 0.5 MG/0.5 ML ML IVP PRN ×3 (05:24→22:30)
[2020-02-13 05:29] LABS: HEMATOCRIT 33.1 % (36-48); MEAN CORPUSCULAR HEMOGLOBIN 27.5 pg (27.0-33.0); MEAN CORPUSCULAR HGB CONC 30.8 g/dL (32.0-36.0); MEAN CORPUSCULAR VOLUME 89.2 fL (79-99); RED BLOOD CELL COUNT(AUTO) 3.71 MIL/uL (4.00-5.50); RED CELL DISTRIBUTION WIDTH 18.2 % (11.0-15.5); WHITE BLOOD COUNT (AUTO) 8.2 K/uL (4.8-10.8)
--- NOTE | 2020-02-13 05:39 | NUR ---
Bed bath given, skin and mouth care provided, all bed linens and gown changed. Patient made comfortable. Medicated for pain as needed. No new variance this shift. Patient is in stable condition. Following POC.
[2020-02-13 06:24] LABS: CREATININE 2.4 mg/dL (0.5-1.5); POTASSIUM 4.6 mmol/L (3.5-5.1)
[2020-02-13] MEDS: TRAMADOL HCL 50 MG TABLET PO PRN ×2 (06:25→15:46)
[2020-02-13] MEDS: INSULIN HUMULIN R 100 UNIT/ML 3ML SQ SCH ×4 (07:30→21:00)
[2020-02-13] MEDS: METOPROLOL TARTRATE 25 MG TAB PO SCH ×2 (09:27→21:00)
[2020-02-13] MEDS: ENOXAPARIN SODIUM 40 MG/0.4 ML SYRINGE SQ SCH (09:27)
[2020-02-13] MEDS: SERTRALINE HCL 50 MG TABLET PO SCH (09:27)
[2020-02-13] MEDS: FAMOTIDINE 20MG TAB 20 MG TAB PO SCH (09:27)
[2020-02-13] MEDS: FOLIC ACID/VITAMIN B COMP W-C 1 CAP TAB PO SCH (09:27)
[2020-02-13] MEDS: ZINC OXIDE OINT 56.7 GM TP SCH (09:28)
[2020-02-13] MEDS: PANTOPRAZOLE SODIUM 40 MG TABLET.DR PO SCH (09:28)
[2020-02-13] MEDS: AMLODIPINE BESYLATE 5 MG TAB PO SCH (09:28)
[2020-02-13 12:00] VITALS: BP 134/64
[2020-02-13] MEDS: LEVOFLOXACIN 500 MG TABLET PO SCH (13:15)
[2020-02-13 16:00] VITALS: BP 101/66
[2020-02-13 20:15] VITALS: BP 108/45
--- NOTE | 2020-02-13 20:45 | NUR ---
PT TAKING OFF BIPAP MASK. DESATS TO 87% ROOM AIR. REAPPLIED BIPAP MASK
[2020-02-13] MEDS: DICYCLOMINE HCL 20 MG TAB PO SCH (21:00)
--- NOTE | 2020-02-13 21:30 | NUR ---
PT CONTINUES TO TAKE BIPAP MASK OFF. REAPPLIED TWICE MORE. ENCOURAGED PT TO KEEP MASK ON.
--- NOTE | 2020-02-13 23:50 | NUR ---
PT PULLED OUT HER IV WITH CATH INTACT. PT CONTINUES TO REMOVE BIPAP.WITHOUT BIPAP PT DESATS TO 86-87%. RESTARTED IV TO RIGHT FOREARM. MEDICATED WITH LORAZEPAM AND REAPPLIED BIPAP MASK. ENCOURAGED HER TO LEAVE BIPAP MASK ON
[2020-02-13] MEDS: LORAZEPAM 2 MG/ML 1 ML VIAL IVP PRN (23:51)
[2020-02-14] VITALS (24 sets, daily range): BP systolic 97–144; BP diastolic 42–92
--- NOTE | 2020-02-14 00:05 | NUR ---
PT REMOVED BIPAP MASK AGAIN. PT REFUSES TO WEAR BIPAP MASK. REAPPLIED TELE MONITOR
--- NOTE | 2020-02-14 00:08 | NUR ---
PAGED ANNE-MARIE RAYA TO INFORM ABOUT SITUATION
--- NOTE | 2020-02-14 00:20 | NUR ---
ELVER MUSEUM TECHNICIAN HERE TO SEE PT. ABG ORDERED. REEVAL POST ABG
[2020-02-14 00:44] LABS: ABG BASE EXCESS -12.5 mmol/L (-2.0-3.0); ABG HCO3 16.5 mmol/L (21.0-28.0); ABG OXYGEN SATURATION 96.2 % (95.0-99.0); ABG PCO2 49 mmHg (32-45)
--- NOTE | 2020-02-14 02:25 | NUR ---
PT TRANSFERRED TO ICU TO THE CARE OF NURSE ADORNO.
--- NOTE | 2020-02-14 02:30 | NUR ---
RECEIVED FROM 3RD FLOOR. MOVED TO ICU BED. PLACED ON MONITOR, NIBP, PULSE OX, INSTRUCTED TO RELAX AND STOP SHAKING ARMS AND TRYING TO PULL OFF O2. RT HERE AND PLACED ON BIPAP WITH ORDERED SETTINGS.
--- NOTE | 2020-02-14 02:45 | NUR ---
IVS 2 NEW IV SITES STARTED FOR ORDERED DRIPS. BILATERAL MITTENS PLACED SINCE SHE CONTINUES TO PULL OFF BIPAP AND KICKS ARMS AND LEGS.
[2020-02-14] MEDS ORDERED: SODIUM BICARB 50MEQ 50ML VIAL ONE (02:47)
[2020-02-14] MEDS: SODIUM BICARB 8.4% 50ML SYRING 150 MEQ in DEXTROSE 5%-WATER 1,000 ML IV SCH ×2 (03:31→16:11)
[2020-02-14] MEDS: DEXMEDETOMIDINE HCL 200 MCG in SODIUM CHLORIDE 0.9% 50 ML IV SCH ×4 (04:07→16:36)
[2020-02-14] MEDS: FUROSEMIDE 10 MG/ML 4ML VIAL IV SCH ×2 (04:28→15:20)
[2020-02-14] MEDS ORDERED: DEXMEDETOMIDINE HCL 200 MCG/2 ML VIAL IV ONE ×2 (04:51→05:56)
[2020-02-14] MEDS ORDERED: PHARMACY COMMUNICATION MISC SCH ×3 (05:45→15:30)
[2020-02-14] MEDS ORDERED: SODIUM CHLORIDE 0.9% 50 ML IV ONE (05:56)
[2020-02-14] MEDS: VANCOMYCIN 2 GM, SODIUM CHLORIDE 0.9% 80 ML PO SCH ×4 (06:00)
[2020-02-14] MEDS: INSULIN HUMULIN R 100 UNIT/ML 3ML SQ SCH ×4 (06:36→20:58)
[2020-02-14 07:45] LABS: HEMATOCRIT 29.8 % (36-48); MEAN CORPUSCULAR HEMOGLOBIN 27.9 pg (27.0-33.0); MEAN CORPUSCULAR HGB CONC 31.5 g/dL (32.0-36.0); MEAN CORPUSCULAR VOLUME 88.4 fL (79-99); NUCLEATED RED BLOOD CELLS 0.3 % (0.0-0.19); PLATELET COUNT (AUTO) 215 K/uL (130-400); RED BLOOD CELL COUNT(AUTO) 3.37 MIL/uL (4.00-5.50); RED CELL DISTRIBUTION WIDTH 18.4 % (11.0-15.5); WHITE BLOOD COUNT (AUTO) 7.9 K/uL (4.8-10.8)
[2020-02-14 07:57] LABS: ABG HCO3 16.4 mmol/L (21.0-28.0); ABG OXYGEN SATURATION 95.3 % (95.0-99.0); ABG PCO2 51 mmHg (32-45)
[2020-02-14 08:00] LABS: ALBUMIN 1.1 g/dL (3.5-5.0); BILIRUBIN,TOTAL 0.2 mg/dL (0.2-1.0); CREATININE 2.4 mg/dL (0.5-1.5); POTASSIUM 4.7 mmol/L (3.5-5.1); TOTAL PROTEIN, SERUM 4.6 g/dL (6.0-8.3)
[2020-02-14] MEDS: AMLODIPINE BESYLATE 5 MG TAB PO SCH (08:03)
[2020-02-14] MEDS: METOPROLOL TARTRATE 25 MG TAB PO SCH ×2 (08:03→20:59)
[2020-02-14 08:32] LABS: BAND NEUTROPHILS % (MANUAL) 3 % (0-2); LYMPHOCYTES % (MANUAL) 5 % (22-44); MONOCYTES % (MANUAL) 5 % (2-9); SEGMENTED NEUTROPHILS % 87 % (40-70)
[2020-02-14 08:33] LABS: MAN.DIFF COMMENT-IMPRESSION MANUAL DIFFERENTIAL
[2020-02-14 08:34] LABS: PLATELET MORPHOLOGY COMMENT ADEQUATE
[2020-02-14] MEDS: FOLIC ACID/VITAMIN B COMP W-C 1 CAP TAB PO SCH (09:00)
[2020-02-14] MEDS: FAMOTIDINE 20MG TAB 20 MG TAB PO SCH (09:00)
[2020-02-14] MEDS: SERTRALINE HCL 50 MG TABLET PO SCH (09:00)
[2020-02-14] MEDS: PANTOPRAZOLE SODIUM 40 MG TABLET.DR PO SCH (09:00)
[2020-02-14] MEDS: ZINC OXIDE OINT 56.7 GM TP SCH ×2 (09:00→10:32)
[2020-02-14] MEDS: ENOXAPARIN SODIUM 40 MG/0.4 ML SYRINGE SQ SCH (09:01)
[2020-02-14] MEDS: DEXMEDETOMIDINE HCL 400 MCG in SODIUM CHLORIDE 0.9% 100 ML IV SCH (20:03)
[2020-02-14] MEDS: DICYCLOMINE HCL 20 MG TAB PO SCH (21:00)
[2020-02-15] VITALS (18 sets, daily range): BP systolic 105–139; BP diastolic 45–111
[2020-02-15] MEDS: DEXMEDETOMIDINE HCL 400 MCG in SODIUM CHLORIDE 0.9% 100 ML IV SCH ×3 (01:36→21:14)
[2020-02-15] MEDS: FUROSEMIDE 10 MG/ML 4ML VIAL IV SCH (04:17)
[2020-02-15] MEDS: INSULIN HUMULIN R 100 UNIT/ML 3ML SQ SCH ×3 (06:31→21:00)
[2020-02-15] MEDS: SODIUM BICARB 8.4% 50ML SYRING 150 MEQ in DEXTROSE 5%-WATER 1,000 ML IV SCH ×2 (06:43→23:30)
[2020-02-15] MEDS: FAMOTIDINE/PF 20 MG/2 ML VIAL IV SCH (08:28)
[2020-02-15] MEDS: AMLODIPINE BESYLATE 5 MG TAB PO SCH (08:28)
[2020-02-15] MEDS: METOPROLOL TARTRATE 25 MG TAB PO SCH ×2 (08:28→21:00)
[2020-02-15] MEDS: ENOXAPARIN SODIUM 40 MG/0.4 ML SYRINGE SQ SCH (08:30)
[2020-02-15] MEDS: SERTRALINE HCL 50 MG TABLET PO SCH (08:30)
[2020-02-15] MEDS: FOLIC ACID/VITAMIN B COMP W-C 1 CAP TAB PO SCH (08:30)
[2020-02-15] MEDS: PANTOPRAZOLE 40 MG/VIAL IV SCH (08:31)
[2020-02-15] MEDS ORDERED: POTASSIUM CHLORIDE 10% ELIXIR 20 MEQ/15 ML UDCUP PO SCH (09:30)
[2020-02-15] MEDS ORDERED: HYDROCHLOROTHIAZIDE 25 MG TABLET ONE (13:10)
[2020-02-15] MEDS ORDERED: ENOXAPARIN SODIUM 30 MG/0.3 ML SQ ONE (13:10)
[2020-02-15] MEDS: LEVOFLOXACIN 500 MG/D5W 100 ML 100 ML IV SCH (13:40)
--- NOTE | 2020-02-15 14:12 | NUR ---
RD FOLLOW UP Tube feeding cancellation received. Unable to place NGT as per RN. Pt with BIPAP. CHF Exacerbation. GFR 23, Cr 2.4, Alb 1.1. NPO x 1 day. Pt on diuretics and fluid restriction. Recommend advance diet as tolerated when medically feasible. If diet not tolerated >3 days, recommend alternate means of nutrition RD to continue to monitor. Please notify as additional nutrition concerns arise. Thank you. Addendum: 02/15/20 at [address] Amended: Links added.
[2020-02-15] MEDS: DICYCLOMINE HCL 20 MG TAB PO SCH (21:00)
[2020-02-16] VITALS (19 sets, daily range): BP systolic 103–148; BP diastolic 50–90
[2020-02-16] MEDS: DEXMEDETOMIDINE HCL 400 MCG in SODIUM CHLORIDE 0.9% 100 ML IV SCH ×4 (00:14→09:35)
[2020-02-16 03:54] LABS: ABG BASE EXCESS -7.1 mmol/L (-2.0-3.0); ABG HCO3 18.5 mmol/L (21.0-28.0); ABG PCO2 38 mmHg (32-45)
[2020-02-16 04:03] LABS: BASOPHILS % (AUTO) 0.2 % (0.0-5.0); EOSINOPHILS % (AUTO) 1.9 % (0.0-8.0); HEMATOCRIT 33.8 % (36-48); LYMPHOCYTES % (AUTO) 5.8 % (21.0-51.0); MEAN CORPUSCULAR HEMOGLOBIN 27.3 pg (27.0-33.0); MEAN CORPUSCULAR HGB CONC 31.4 g/dL (32.0-36.0); MEAN CORPUSCULAR VOLUME 87.1 fL (79-99); NEUTROPHILS % (AUTO) 88.3 % (40.0-77.0); PLATELET COUNT (AUTO) 200 K/uL (130-400); RED BLOOD CELL COUNT(AUTO) 3.88 MIL/uL (4.00-5.50); RED CELL DISTRIBUTION WIDTH 18.4 % (11.0-15.5); WHITE BLOOD COUNT (AUTO) 9.6 K/uL (4.8-10.8)
[2020-02-16 04:34] LABS: ALBUMIN 1.1 g/dL (3.5-5.0); ASPARTATE AMINOTRANSFERASE 23 U/L (10-37); BILIRUBIN,TOTAL 0.1 mg/dL (0.2-1.0); CARBON DIOXIDE 19 mmol/L (21-32); CHLORIDE 107 mmol/L (101-111); CREATININE 2.7 mg/dL (0.5-1.5); GLOMERULAR FILTR. RATE CALC 20 mL/min (>60); GLUCOSE,RANDOM 112 mg/dL (70-105); PHOSPHORUS 5.9 mg/dL (2.5-4.9); POTASSIUM 4.1 mmol/L (3.5-5.1); SODIUM SERUM 140 mmol/L (136-145); TOTAL PROTEIN, SERUM 4.6 g/dL (6.0-8.3); UREA NITROGEN, BLOOD 68 mg/dL (7-18)
[2020-02-16 04:36] LABS: ALANINE AMINOTRANSFERASE < 6 U/L (12-78)
[2020-02-16] MEDS: FUROSEMIDE 10 MG/ML 4ML VIAL IV SCH ×2 (05:18→16:42)
[2020-02-16] MEDS: INSULIN HUMULIN R 100 UNIT/ML 3ML SQ SCH ×4 (07:30→21:00)
[2020-02-16] MEDS: FOLIC ACID/VITAMIN B COMP W-C 1 CAP TAB PO SCH (08:18)
[2020-02-16] MEDS: PANTOPRAZOLE 40 MG/VIAL IV SCH (08:18)
[2020-02-16] MEDS: SERTRALINE HCL 50 MG TABLET PO SCH (08:18)
[2020-02-16] MEDS: ENOXAPARIN SODIUM 40 MG/0.4 ML SYRINGE SQ SCH (08:19)
[2020-02-16] MEDS: ZINC OXIDE OINT 56.7 GM TP SCH (08:20)
[2020-02-16] MEDS: FAMOTIDINE/PF 20 MG/2 ML VIAL IV SCH (09:00)
[2020-02-16] MEDS: AMLODIPINE BESYLATE 5 MG TAB PO SCH (09:00)
[2020-02-16] MEDS: METOPROLOL TARTRATE 25 MG TAB PO SCH ×2 (09:00→21:00)
[2020-02-16 11:26] LABS: ABG BASE EXCESS -7.4 mmol/L (-2.0-3.0); ABG HCO3 19.1 mmol/L (21.0-28.0); ABG OXYGEN SATURATION 97.4 % (95.0-99.0); ABG PCO2 42 mmHg (32-45)
[2020-02-16] MEDS: MAGNESIUM 2GM PREMIX 50ML 50 ML IV SCH (11:38)
[2020-02-16] MEDS: SODIUM BICARB 8.4% 50ML SYRING 150 MEQ in DEXTROSE 5%-WATER 1,000 ML IV SCH (13:41)
[2020-02-16] MEDS: DICYCLOMINE HCL 20 MG TAB PO SCH (21:00)
[2020-02-16] MEDS ORDERED: DEXMEDETOMIDINE HCL 200 MCG/2 ML VIAL IV ONE ×2 (23:00)
[2020-02-16] MEDS ORDERED: SODIUM CHLORIDE 0.9% 200 ML IV ONE (23:01)
[2020-02-17] VITALS (14 sets, daily range): BP systolic 110–157; BP diastolic 51–124
[2020-02-17 03:34] LABS: BASOPHILS % (AUTO) 0.2 % (0.0-5.0); EOSINOPHILS % (AUTO) 1.5 % (0.0-8.0); HEMATOCRIT 32.7 % (36-48); LYMPHOCYTES % (AUTO) 7.2 % (21.0-51.0); MEAN CORPUSCULAR HEMOGLOBIN 27.3 pg (27.0-33.0); MEAN CORPUSCULAR HGB CONC 31.2 g/dL (32.0-36.0); MEAN CORPUSCULAR VOLUME 87.4 fL (79-99); NEUTROPHILS % (AUTO) 86.4 % (40.0-77.0); PLATELET COUNT (AUTO) 205 K/uL (130-400); RED BLOOD CELL COUNT(AUTO) 3.74 MIL/uL (4.00-5.50); RED CELL DISTRIBUTION WIDTH 18.3 % (11.0-15.5); WHITE BLOOD COUNT (AUTO) 10.8 K/uL (4.8-10.8)
[2020-02-17 03:45] LABS: ABG BASE EXCESS -5.6 mmol/L (-2.0-3.0); ABG HCO3 19.5 mmol/L (21.0-28.0); ABG OXYGEN SATURATION 98.2 % (95.0-99.0); ABG PCO2 37 mmHg (32-45)
[2020-02-17 03:47] LABS: ALBUMIN 1.1 g/dL (3.5-5.0); BILIRUBIN,TOTAL 0.2 mg/dL (0.2-1.0); CREATININE 2.8 mg/dL (0.5-1.5); MAGNESIUM 2.5 mg/dL (1.80-2.40); PHOSPHORUS 5.7 mg/dL (2.5-4.9); TOTAL PROTEIN, SERUM 4.4 g/dL (6.0-8.3)
[2020-02-17] MEDS: FUROSEMIDE 10 MG/ML 4ML VIAL IV SCH ×2 (05:28→19:49)
[2020-02-17] MEDS: INSULIN HUMULIN R 100 UNIT/ML 3ML SQ SCH ×4 (07:30→21:00)
[2020-02-17] MEDS: FOLIC ACID/VITAMIN B COMP W-C 1 CAP TAB PO SCH (08:28)
[2020-02-17] MEDS: SERTRALINE HCL 50 MG TABLET PO SCH (08:28)
[2020-02-17] MEDS: METOPROLOL TARTRATE 25 MG TAB PO SCH ×2 (08:28→21:47)
[2020-02-17] MEDS: AMLODIPINE BESYLATE 5 MG TAB PO SCH (08:28)
[2020-02-17] MEDS: FAMOTIDINE/PF 20 MG/2 ML VIAL IV SCH (08:29)
[2020-02-17] MEDS: ENOXAPARIN SODIUM 40 MG/0.4 ML SYRINGE SQ SCH (08:30)
--- NOTE | 2020-02-17 09:00 | NUR ---
DYSPHAGIA EVAL COMPLETED. +S/S OF ASPIRATION WITH THIN LIQUIDS. RECOMMEND MECHANICAL SOFT, NECTAR-THICK LIQUIDS; PILLS WHOLE WITH LIQUIDS. RECOMMENDATIONS: DYSPHAGIA THERAPY 1-5X WEEK TO INCREASE ORAL MOTOR STRENGTH AND PHARYNGEAL SWALLOW: LTG#1: Pt WILL TOLERATE LEAST RESTRICTIVE DIET TO MEET NUTRITION/HYDRATION WITH NO S/S OF ASPIRATION. LTG#2: SKILLED EDUCATION Pt/FAMILY/STAFF STG#1: Pt WILL PARTICIPATE IN LARYNGEAL ELEVATION/EXCURSION EXERCISES WITH 80% ACCURACY. STG#2: Pt WILL PARTICIPATE IN TONGUE BASE RETRACTION EXERCISES WITH 80% ACCURACY. STG#3: Pt WILL PARTICIPATE IN ORAL MOTOR EXERCISES WITH 80% ACCURACY. STG#4: Pt WILL TOLERATE MECHANICAL SOFT, NECTAR-THICK LIQUID DIET WITH NO OVERT S/S OF ASPIRATION. STG#5: PT WILL TOLERATE ADVANCED THERAPEUTIC TRIALS OF THIN LIQUIDS AND REGULAR TEXTURE WITH NO OVERT S/S OF ASPIRATION. STG#6: SKILLED EDUCATION Pt/FAMILY/STAFF. BATTERY CHARGER TESTER COORDINATED CARE WITH NURSE MANCIA. PLEASE NOTE CURRENT RECOMMENDATIONS ARE CONTINGENT OF ADEQUATE RESPIRATORY STATUS. PLEASE DOWNGRADE TO NPO IF Pt REQUIRES CONTINUOUS BIPAP. Pt WAS EVALUATED ON NASAL CANNULA. NURSE VERBALIZED AGREEMENT AND COMPLIANCE WITH RECOMMENDATIONS. RESULTS AND RECOMMENDATIONS REVIEWED WITH Pt AND NURSE MANCIA. Addendum: 02/17/20 at 1342 by JULIANA DIXON [facility] Amended: Links added.
[2020-02-17] MEDS: ZINC OXIDE OINT 56.7 GM TP SCH (09:04)
[2020-02-17] MEDS: SODIUM BICARB 8.4% 50ML SYRING 150 MEQ in DEXTROSE 5%-WATER 1,000 ML IV SCH (10:25)
[2020-02-17] MEDS: PANTOPRAZOLE 40 MG/VIAL IV SCH (10:25)
[2020-02-17] MEDS: LEVOFLOXACIN 500 MG/D5W 100 ML 100 ML IV SCH (19:06)
[2020-02-17] MEDS: DICYCLOMINE HCL 20 MG TAB PO SCH (21:47)
[2020-02-17] MEDS: TRAMADOL HCL 50 MG TABLET PO PRN (21:47)
[2020-02-18] VITALS (9 sets, daily range): BP systolic 95–118; BP diastolic 37–84
[2020-02-18] MEDS: HYDROMORPHONE HCL 0.5 MG/0.5 ML ML IVP PRN (01:50)
[2020-02-18 03:44] LABS: ABG BASE EXCESS -4.8 mmol/L (-2.0-3.0); ABG OXYGEN SATURATION 92.1 % (95.0-99.0); ABG PCO2 42 mmHg (32-45)
[2020-02-18] MEDS: FUROSEMIDE 10 MG/ML 4ML VIAL IV SCH ×2 (04:14→15:23)
[2020-02-18] MEDS: INSULIN HUMULIN R 100 UNIT/ML 3ML SQ SCH ×4 (05:30→20:16)
[2020-02-18 05:52] LABS: BASOPHILS % (AUTO) 0.3 % (0.0-5.0); EOSINOPHILS % (AUTO) 0.2 % (0.0-8.0); HEMATOCRIT 31.3 % (36-48); LYMPHOCYTES % (AUTO) 5.3 % (21.0-51.0); MEAN CORPUSCULAR HEMOGLOBIN 27.7 pg (27.0-33.0); MEAN CORPUSCULAR HGB CONC 32.6 g/dL (32.0-36.0); MEAN CORPUSCULAR VOLUME 85.1 fL (79-99); MONOCYTES % (AUTO) 3.3 % (3.0-13.0); PLATELET COUNT (AUTO) 254 K/uL (130-400); RED BLOOD CELL COUNT(AUTO) 3.68 MIL/uL (4.00-5.50); RED CELL DISTRIBUTION WIDTH 17.9 % (11.0-15.5); WHITE BLOOD COUNT (AUTO) 19.3 K/uL (4.8-10.8)
[2020-02-18 06:19] LABS: ALBUMIN 1.1 g/dL (3.5-5.0); BILIRUBIN,DIRECT 0.2 mg/dL (0.0-0.3); BILIRUBIN,TOTAL 0.3 mg/dL (0.2-1.0); CREATININE 2.7 mg/dL (0.5-1.5); MAGNESIUM 1.8 mg/dL (1.80-2.40); PHOSPHORUS 5.8 mg/dL (2.5-4.9); TOTAL PROTEIN, SERUM 4.5 g/dL (6.0-8.3)
[2020-02-18] MEDS: FOLIC ACID/VITAMIN B COMP W-C 1 CAP TAB PO SCH (08:19)
[2020-02-18] MEDS: AMLODIPINE BESYLATE 5 MG TAB PO SCH (08:19)
[2020-02-18] MEDS: METOPROLOL TARTRATE 25 MG TAB PO SCH ×2 (08:20→20:16)
[2020-02-18] MEDS: SODIUM BICARB 8.4% 50ML SYRING 150 MEQ in DEXTROSE 5%-WATER 1,000 ML IV SCH ×2 (08:24→12:35)
[2020-02-18] MEDS: FAMOTIDINE/PF 20 MG/2 ML VIAL IV SCH (08:32)
[2020-02-18] MEDS: PANTOPRAZOLE 40 MG/VIAL IV SCH (08:32)
[2020-02-18] MEDS: ENOXAPARIN SODIUM 40 MG/0.4 ML SYRINGE SQ SCH (08:39)
[2020-02-18] MEDS: SERTRALINE HCL 50 MG TABLET PO SCH (08:40)
[2020-02-18] MEDS: ZINC OXIDE OINT 56.7 GM TP SCH (08:58)
--- NOTE | 2020-02-18 11:15 | NUR ---
BIPAP REMOVED PER PT. REQUEST TO EAT LUNCH; PLACED ON 3L/NC. ASSISTED TO SET UP FOR MEAL AND FOOD CUT FOR PT.
[2020-02-18] MEDS: TRAMADOL HCL 50 MG TABLET PO PRN (11:16)
--- NOTE | 2020-02-18 11:26 | NUR ---
DR. Tasha CANALES IN ROOM SPEAKING WITH PT. RE:PLAN OF CARE. QUESTIONS ANSWERED BY DR. CANALES; PT. VERBALIZED UNDERSTANDING.
--- NOTE | 2020-02-18 13:35 | NUR ---
DR. MINAYA AT BEDSIDE. THIS NURSE UPDATED MD ON PT.'S STATUS, VERBALIZED UNDERSTANDING. NO NEW ORDERS RECEIVED AT THIS TIME.
--- NOTE | 2020-02-18 14:15 | NUR ---
REPOSITIONED IN BED FOR COMFORT. BIPAP IN PLACE. CALL LIGHT WITHIN REACH.
--- NOTE | 2020-02-18 15:40 | NUR ---
TRANSFERRED TO ROOM 416 VIA BED WITH BELONGINGS, ACCOMPANIED BY THIS NURSE AND Dayday CHAUHAN, JAIRO. PT. WITH NRB AT 100% FOR TRANSPORT; DENIES ANY C/O SOB.
--- NOTE | 2020-02-18 15:55 | NUR ---
REPORT TO Carissa KASPER RN.
[2020-02-18] MEDS: DICYCLOMINE HCL 20 MG TAB PO SCH (20:16)
[2020-02-19 00:26] VITALS: BP 101/61
[2020-02-19] MEDS: SODIUM BICARB 8.4% 50ML SYRING 150 MEQ in DEXTROSE 5%-WATER 1,000 ML IV SCH (04:30)
[2020-02-19 05:37] LABS: BASOPHILS % (AUTO) 0.2 % (0.0-5.0); EOSINOPHILS % (AUTO) 0.3 % (0.0-8.0); HEMATOCRIT 28.2 % (36-48); LYMPHOCYTES % (AUTO) 5.7 % (21.0-51.0); MEAN CORPUSCULAR HEMOGLOBIN 27.5 pg (27.0-33.0); MEAN CORPUSCULAR VOLUME 83.4 fL (79-99); MONOCYTES % (AUTO) 3.8 % (3.0-13.0); PLATELET COUNT (AUTO) 227 K/uL (130-400); RED BLOOD CELL COUNT(AUTO) 3.38 MIL/uL (4.00-5.50); RED CELL DISTRIBUTION WIDTH 17.5 % (11.0-15.5); WHITE BLOOD COUNT (AUTO) 15.4 K/uL (4.8-10.8)
[2020-02-19 05:48] LABS: BILIRUBIN,TOTAL 0.4 mg/dL (0.2-1.0); CREATININE 2.8 mg/dL (0.5-1.5); POTASSIUM 3.8 mmol/L (3.5-5.1)
[2020-02-19] MEDS: HYDROMORPHONE HCL 0.5 MG/0.5 ML ML IVP PRN ×3 (06:00→20:13)
[2020-02-19] MEDS: FUROSEMIDE 10 MG/ML 4ML VIAL IV SCH ×2 (06:13→17:17)
[2020-02-19] MEDS: INSULIN HUMULIN R 100 UNIT/ML 3ML SQ SCH ×4 (06:15→20:03)
[2020-02-19 06:23] VITALS: BP 105/62
[2020-02-19] MEDS: ZINC OXIDE OINT 56.7 GM TP SCH (09:00)
[2020-02-19] MEDS: FOLIC ACID/VITAMIN B COMP W-C 1 CAP TAB PO SCH (09:56)
[2020-02-19] MEDS: FAMOTIDINE/PF 20 MG/2 ML VIAL IV SCH (09:56)
[2020-02-19] MEDS: AMLODIPINE BESYLATE 5 MG TAB PO SCH (09:56)
[2020-02-19] MEDS: SERTRALINE HCL 50 MG TABLET PO SCH (09:56)
[2020-02-19] MEDS: METOPROLOL TARTRATE 25 MG TAB PO SCH ×2 (09:56→20:13)
[2020-02-19] MEDS: ENOXAPARIN SODIUM 40 MG/0.4 ML SYRINGE SQ SCH (09:56)
[2020-02-19] MEDS: PANTOPRAZOLE 40 MG/VIAL IV SCH (10:03)
[2020-02-19 11:50] VITALS: BP 107/46
[2020-02-19] MEDS: LEVOFLOXACIN 500 MG/D5W 100 ML 100 ML IV SCH (14:14)
[2020-02-19 16:00] VITALS: BP 103/50
--- NOTE | 2020-02-19 19:09 | NUR ---
cm note discussed order for LTach with dr mckenzie Ho, that per josé at [facility] they do not accept Medicaid [facility] at [facility]. per states will continue to f/u with pt and decide on plan. snf vs home.
[2020-02-19] MEDS: DICYCLOMINE HCL 20 MG TAB PO SCH (20:07)
[2020-02-19] MEDS ORDERED: NYSTATIN 15 GM POWDER TP PRN (20:30)
[2020-02-19 20:32] VITALS: BP 112/52
[2020-02-19] MEDS: TRAMADOL HCL 50 MG TABLET PO PRN (23:23)
[2020-02-19 23:40] VITALS: BP_SYST 48
[2020-02-20 04:27] VITALS: BP 124/59
[2020-02-20] MEDS: FUROSEMIDE 10 MG/ML 4ML VIAL IV SCH (04:42)
[2020-02-20] MEDS: HYDROMORPHONE HCL 0.5 MG/0.5 ML ML IVP PRN (04:58)
[2020-02-20 05:23] LABS: BASOPHILS % (AUTO) 0.1 % (0.0-5.0); EOSINOPHILS % (AUTO) 0.2 % (0.0-8.0); HEMATOCRIT 27.4 % (36-48); LYMPHOCYTES % (AUTO) 5.1 % (21.0-51.0); MEAN CORPUSCULAR HEMOGLOBIN 27.8 pg (27.0-33.0); MEAN CORPUSCULAR HGB CONC 33.2 g/dL (32.0-36.0); MEAN CORPUSCULAR VOLUME 83.8 fL (79-99); MONOCYTES % (AUTO) 4.2 % (3.0-13.0); NEUTROPHILS % (AUTO) 89.5 % (40.0-77.0); PLATELET COUNT (AUTO) 215 K/uL (130-400); RED BLOOD CELL COUNT(AUTO) 3.27 MIL/uL (4.00-5.50); RED CELL DISTRIBUTION WIDTH 17.4 % (11.0-15.5); WHITE BLOOD COUNT (AUTO) 13.9 K/uL (4.8-10.8)
[2020-02-20 05:56] LABS: BILIRUBIN,DIRECT 0.3 mg/dL (0.0-0.3); BILIRUBIN,TOTAL 0.5 mg/dL (0.2-1.0); TOTAL PROTEIN, SERUM 4.6 g/dL (6.0-8.3)
[2020-02-20 06:03] LABS: B-TYPE NATRIURETIC PEPTIDE 370 pg/mL (0-100)
[2020-02-20] MEDS: INSULIN HUMULIN R 100 UNIT/ML 3ML SQ SCH ×4 (06:13→20:59)
[2020-02-20 08:00] VITALS: BP 107/56
[2020-02-20] MEDS: PANTOPRAZOLE 40 MG/VIAL IV SCH (08:10)
[2020-02-20] MEDS: SERTRALINE HCL 50 MG TABLET PO SCH (08:11)
[2020-02-20] MEDS: FAMOTIDINE/PF 20 MG/2 ML VIAL IV SCH (08:12)
[2020-02-20] MEDS: ENOXAPARIN SODIUM 40 MG/0.4 ML SYRINGE SQ SCH (08:12)
[2020-02-20] MEDS: ZINC OXIDE OINT 56.7 GM TP SCH (08:12)
[2020-02-20] MEDS: FOLIC ACID/VITAMIN B COMP W-C 1 CAP TAB PO SCH (08:12)
[2020-02-20] MEDS: METOPROLOL TARTRATE 25 MG TAB PO SCH ×2 (09:00→20:28)
[2020-02-20] MEDS: AMLODIPINE BESYLATE 5 MG TAB PO SCH (09:00)
[2020-02-20] MEDS: TRAMADOL HCL 50 MG TABLET PO PRN ×3 (09:56→16:47)
--- NOTE | 2020-02-20 12:59 | NUR ---
CHART REVIEWED. NOTE MADE OF BMI/ VERY HIGH WEIGHT. NOT A CANDIDATE FOR SNF. CONTACTED [facility]- THEY DO NOT TAKE [place] MEDICAID, ONLY SUPERIOR PATIENT WILL HAVE TO GO HOME WITH EQUIPMENT AND FAMILY SUPPORT
[2020-02-20 13:33] VITALS: BP 118/56
[2020-02-20] MEDS: FUROSEMIDE 10 MG/ML 2ML VIAL IVP SCH (15:57)
[2020-02-20 18:15] VITALS: BP 116/55
[2020-02-20 19:59] VITALS: BP 120/54
[2020-02-20] MEDS: DICYCLOMINE HCL 20 MG TAB PO SCH (20:27)
[2020-02-20 23:31] VITALS: BP 111/53
[2020-02-21] VITALS (7 sets, daily range): BP systolic 93–124; BP diastolic 42–74
[2020-02-21] MEDS: TRAMADOL HCL 50 MG TABLET PO PRN ×3 (00:42→08:14)
[2020-02-21] MEDS: FUROSEMIDE 10 MG/ML 2ML VIAL IVP SCH ×2 (05:09→16:07)
--- NOTE | 2020-02-21 06:42 | NUR ---
AM care provided. Bed linens and gown changed. Patient medicated for pain as needed. No acute respiratory distress this shift. Following POC.
[2020-02-21] MEDS: INSULIN HUMULIN R 100 UNIT/ML 3ML SQ SCH ×4 (06:58→21:00)
--- NOTE | 2020-02-21 08:00 | NUR ---
ASSESSMENT PT IS AAOX3 DENIES CP DENIES SOB DENIES NV NO COMPLAINTS AT THIS TIME, RESTING IN BED. CALL LIGHT WITHIN REACH. AM MEDS GIVEN AND TOLERATED. PAIN MED GIVEN PRN.
[2020-02-21] MEDS: ENOXAPARIN SODIUM 40 MG/0.4 ML SYRINGE SQ SCH (08:13)
[2020-02-21] MEDS: FOLIC ACID/VITAMIN B COMP W-C 1 CAP TAB PO SCH (08:13)
[2020-02-21] MEDS: METOPROLOL TARTRATE 25 MG TAB PO SCH ×2 (08:14→21:47)
[2020-02-21] MEDS: PANTOPRAZOLE 40 MG/VIAL IV SCH (08:14)
[2020-02-21] MEDS: FAMOTIDINE/PF 20 MG/2 ML VIAL IV SCH (08:14)
[2020-02-21] MEDS: AMLODIPINE BESYLATE 5 MG TAB PO SCH (08:14)
[2020-02-21] MEDS: SERTRALINE HCL 50 MG TABLET PO SCH (08:14)
[2020-02-21] MEDS: ZINC OXIDE OINT 56.7 GM TP SCH (08:15)
[2020-02-21 08:43] LABS: POTASSIUM 4.1 mmol/L (3.5-5.1)
[2020-02-21 08:56] LABS: BILIRUBIN,TOTAL 0.8 mg/dL (0.2-1.0); CREATININE 3.3 mg/dL (0.5-1.5); MAGNESIUM 1.8 mg/dL (1.80-2.40); TOTAL PROTEIN, SERUM 4.3 g/dL (6.0-8.3)
[2020-02-21] MEDS ORDERED: LEVOFLOXACIN 500 MG TABLET PO SCH (11:00)
[2020-02-21] MEDS ORDERED: PHARMACY COMMUNICATION MISC SCH (11:00)
[2020-02-21] MEDS: DICYCLOMINE HCL 20 MG TAB PO SCH (21:47)
[2020-02-22] MEDS: HYDROMORPHONE HCL 0.5 MG/0.5 ML ML IVP PRN (03:00)
--- NOTE | 2020-02-22 03:05 | NUR ---
SHIFT UPDATE. PATIENT IN BED. BIPAP ON PT. TOLERATING WELL. ADL CARE DONE ALL LINENS CHANGED. ZINC AND BARRIER CREAM APPLIED TO EXCORIATED AREAS. PT. REPOSITIONED IN BED PT WITH C/O PAIN MEDICATED PER PRN MD ORDER. CALL DEVICE WITHIN REACH WILL CONT. TO MONITOR.
[2020-02-22 03:23] VITALS: BP 104/48
[2020-02-22] MEDS: FUROSEMIDE 10 MG/ML 2ML VIAL IVP SCH ×2 (04:31→16:37)
[2020-02-22] MEDS: INSULIN HUMULIN R 100 UNIT/ML 3ML SQ SCH ×4 (05:41→21:00)
[2020-02-22 06:26] LABS: HEMATOCRIT 29.1 % (36-48); MEAN CORPUSCULAR VOLUME 84.8 fL (79-99); RED BLOOD CELL COUNT(AUTO) 3.43 MIL/uL (4.00-5.50); RED CELL DISTRIBUTION WIDTH 17.1 % (11.0-15.5); WHITE BLOOD COUNT (AUTO) 20.2 K/uL (4.8-10.8)
[2020-02-22 06:42] LABS: CREATININE 3.5 mg/dL (0.5-1.5); POTASSIUM 4.2 mmol/L (3.5-5.1)
--- NOTE | 2020-02-22 08:30 | NUR ---
AM ASSESSMENT PT LAYING IN BED, SPECIALTY BED. A/O X 3. SOB ON EXERTION. NO DISTRESS NOTED. O2 NC @ 4L. PT INTERCHANGES NC W/BIPAP @ BEDSIDE. DENIES PAIN OR DISCOMFORT @ THIS TIME. TELE: SR. DENIES N/V AND/OR DIARRHEA. PT REFUSING TO BE CHANGED WHEN SOILED. CATHETER PATENT & DRAINING. ULCER TO RT HIP & SACRUM. BEDREST. SPECIALTY BED. GENERALIZED EDEMA. MORBIDLY OBESE. INSTRUCTED TO CALL FOR ASSISTANCE. CALL URIEL W/IN REACH.
[2020-02-22 08:48] VITALS: BP 101/49
[2020-02-22] MEDS: AMLODIPINE BESYLATE 5 MG TAB PO SCH (09:11)
[2020-02-22] MEDS: FOLIC ACID/VITAMIN B COMP W-C 1 CAP TAB PO SCH (09:11)
[2020-02-22] MEDS: FAMOTIDINE/PF 20 MG/2 ML VIAL IV SCH (09:11)
[2020-02-22] MEDS: ENOXAPARIN SODIUM 40 MG/0.4 ML SYRINGE SQ SCH (09:12)
[2020-02-22] MEDS: PANTOPRAZOLE 40 MG/VIAL IV SCH (09:12)
[2020-02-22] MEDS: METOPROLOL TARTRATE 25 MG TAB PO SCH ×2 (09:12→21:10)
[2020-02-22] MEDS: SERTRALINE HCL 50 MG TABLET PO SCH (09:12)
[2020-02-22] MEDS: ZINC OXIDE OINT 56.7 GM TP SCH (09:13)
[2020-02-22] MEDS ORDERED: ONDANSETRON HCL 4 MG/2 ML VIAL IVP PRN (10:30)
[2020-02-22] MEDS: TRAMADOL HCL 50 MG TABLET PO PRN ×2 (11:12→21:12)
[2020-02-22 12:53] VITALS: BP 100/45
[2020-02-22] MEDS ORDERED: PHARMACY COMMUNICATION MISC SCH (13:00)
[2020-02-22] MEDS ORDERED: COMPOUND PO MISCELLANEOUS 1 EACH MISC MISC PRN (13:15)
[2020-02-22] MEDS ORDERED: VANCOMYCIN 250MG/5ML ORAL SOLUTION 40ML PO SCH ×2 (13:15)
--- NOTE | 2020-02-22 13:20 | NUR ---
RD FOLLOW UP RD notification for Nutrition Education and PCM. Pt with 75gm CC, Mechanical Soft, NTL diet order in place. Fluctuating PO intake. 0% for breakfast today. Generalized 3+ edema. Stg 2 Sacral ulcer, Hip Ulcer. Elevated BUN (87), Cr (3.5), decreased GFR (15), severe serum Albumin (1.0). BMI 79.7. Recommend Modify diet to Heart Healthy, Renal non Dialysis diet order Recommend Nepro QD Recommend Willy BID, 500mg Vitamin C (BID), 220mg Zinc (QD) for wound healing support. RD faxed Weight Management Nutrition Education to ([phone]), RN to be notified. RD to continue to monitor. Please notify RD as additional nutrition concerns arise. Thank you.
--- NOTE | 2020-02-22 13:27 | NUR ---
NUTRITION COMBINATION WELDER APPRENTICE-ASSISTED NUTRITION EDUCATION. ALEJANDRA faxed Weight Management Nutrition Education to ([phone]). Called Unit and RN extension, No answer. ALEJANDRA to follow up. Addendum: 02/22/20 at [address] RD Amended: Links added.
--- NOTE | 2020-02-22 14:34 | NUR ---
FOLLOW UP COMPLETED. ' Pt CURRENTLY ON MECHANICAL SOFT, NECTAR-THICK LIQUID DIET. NO OVERT S/S OF ASPIRATION AT THIS TIME. Pt IS TOLERATING DIET. Pt WITH FLUCTUATING P.O. INTAKE. RD ON CASELOAD AT THIS TIME. RISK CONTROL FIELD REPRESENTATIVE WILL CONTINUE TO FOLLOW Pt. Addendum: 02/22/20 at 1436 by JULIANA DIXON, [facility] Amended: Links added.
--- NOTE | 2020-02-22 17:00 | NUR ---
NUTRITION PT REFUSING TO EAT OR DRINK FOOD SERVED TODAY. REFUSED FOR BFAST, LUNCH, & DINNER.
[2020-02-22 17:08] VITALS: BP 111/52
[2020-02-22] MEDS: SODIUM CHLORIDE 0.9% PO SCH ×2 (17:27)
[2020-02-22] MEDS: VANCOMYCIN 2 GM PO SCH ×2 (17:27)
[2020-02-22] MEDS ORDERED: PROMETHAZINE HCL 25 MG/ML 1ML AMPULE IM SCH (18:00)
--- NOTE | 2020-02-22 18:05 | NUR ---
STATUS PT REFUSING TO BE TURNED OR CHANGED THROUGHOUT WHOLE SHIFT. EXPLAIN TO PT IMPORTANCE ON BEING TURNED & CHANGED. PT CONTINUES TO REFUSE.
[2020-02-22 20:17] VITALS: BP 95/48
[2020-02-22] MEDS: DICYCLOMINE HCL 20 MG TAB PO SCH (21:10)
[2020-02-22 23:11] VITALS: BP 94/67
[2020-02-23 04:18] VITALS: BP 95/45
[2020-02-23] MEDS: FUROSEMIDE 10 MG/ML 2ML VIAL IVP SCH ×2 (04:32→17:56)
[2020-02-23 04:43] LABS: HEMATOCRIT 29.1 % (36-48); MEAN CORPUSCULAR HEMOGLOBIN 27.9 pg (27.0-33.0); MEAN CORPUSCULAR VOLUME 84.6 fL (79-99); RED BLOOD CELL COUNT(AUTO) 3.44 MIL/uL (4.00-5.50); WHITE BLOOD COUNT (AUTO) 22.9 K/uL (4.8-10.8)
[2020-02-23] MEDS: INSULIN HUMULIN R 100 UNIT/ML 3ML SQ SCH ×4 (05:18→21:00)
[2020-02-23 05:37] LABS: CREATININE 3.7 mg/dL (0.5-1.5); PHOSPHORUS 6.8 mg/dL (2.5-4.9); POTASSIUM 4.3 mmol/L (3.5-5.1)
[2020-02-23 09:03] VITALS: BP 105/51
[2020-02-23] MEDS: FOLIC ACID/VITAMIN B COMP W-C 1 CAP TAB PO SCH (11:03)
[2020-02-23] MEDS: SERTRALINE HCL 50 MG TABLET PO SCH (11:03)
[2020-02-23] MEDS: AMLODIPINE BESYLATE 5 MG TAB PO SCH (11:03)
[2020-02-23] MEDS: METOPROLOL TARTRATE 25 MG TAB PO SCH ×2 (11:03→21:25)
[2020-02-23] MEDS: ENOXAPARIN SODIUM 40 MG/0.4 ML SYRINGE SQ SCH (11:04)
[2020-02-23] MEDS: PANTOPRAZOLE SODIUM 40 MG TABLET.DR PO SCH (12:11)
[2020-02-23 12:17] VITALS: BP 106/53
[2020-02-23] MEDS: VANCOMYCIN 2 GM PO SCH ×6 (12:28→18:35)
[2020-02-23] MEDS: SODIUM CHLORIDE 0.9% PO SCH ×6 (12:28→18:35)
[2020-02-23] MEDS: ZINC OXIDE OINT 60GM TUBE TP SCH (13:25)
[2020-02-23] MEDS: HYDROMORPHONE HCL 0.5 MG/0.5 ML ML IVP PRN (13:46)
--- NOTE | 2020-02-23 13:49 | NUR ---
HOLD TREATMENT. Pt CURRENTLY ON BIPAP. NO FOOD OR LIQUIDS PROVIDED AT THIS TIME. Addendum: 02/23/20 at 1351 by JULIANA DIXON, [facility] Amended: Links added.
[2020-02-23 16:00] VITALS: BP 112/58
[2020-02-23] MEDS: CALCIUM ACETATE 667 MG CAPSULE PO SCH (17:56)
[2020-02-23 19:54] VITALS: BP 128/81
[2020-02-23] MEDS: DICYCLOMINE HCL 20 MG TAB PO SCH (21:24)
[2020-02-23] MEDS: FAMOTIDINE/PF 20 MG/2 ML VIAL IV SCH (21:24)
[2020-02-23 23:27] VITALS: BP_SYST 124; BP_SYST 130; BP_DIAS 69; BP_DIAS 72
[2020-02-24] MEDS: SODIUM CHLORIDE 0.9% PO SCH ×8 (00:22→17:39)
[2020-02-24] MEDS: VANCOMYCIN 2 GM PO SCH ×8 (00:22→17:39)
[2020-02-24 03:41] VITALS: BP 126/44
[2020-02-24] MEDS: FUROSEMIDE 10 MG/ML 2ML VIAL IVP SCH ×2 (04:26→16:24)
[2020-02-24 04:56] LABS: BASOPHILS % (AUTO) 0.2 % (0.0-5.0); EOSINOPHILS % (AUTO) 0.6 % (0.0-8.0); HEMATOCRIT 29.3 % (36-48); LYMPHOCYTES % (AUTO) 3.3 % (21.0-51.0); MEAN CORPUSCULAR HEMOGLOBIN 27.8 pg (27.0-33.0); MEAN CORPUSCULAR HGB CONC 33.4 g/dL (32.0-36.0); MEAN CORPUSCULAR VOLUME 83.2 fL (79-99); MONOCYTES % (AUTO) 2.2 % (3.0-13.0); NEUTROPHILS % (AUTO) 92.2 % (40.0-77.0); PLATELET COUNT (AUTO) 123 K/uL (130-400); RED BLOOD CELL COUNT(AUTO) 3.52 MIL/uL (4.00-5.50); RED CELL DISTRIBUTION WIDTH 16.9 % (11.0-15.5); WHITE BLOOD COUNT (AUTO) 26.1 K/uL (4.8-10.8)
[2020-02-24 05:13] LABS: CREATININE 3.9 mg/dL (0.5-1.5); PHOSPHORUS 6.6 mg/dL (2.5-4.9); POTASSIUM 4.1 mmol/L (3.5-5.1)
[2020-02-24] MEDS: DEXTROSE 50%-WATER 50 ML DISP.SYRIN IV PRN (05:47)
[2020-02-24] MEDS: INSULIN HUMULIN R 100 UNIT/ML 3ML SQ SCH ×4 (06:19→21:00)
[2020-02-24 08:00] VITALS: BP 98/59
[2020-02-24] MEDS: FOLIC ACID/VITAMIN B COMP W-C 1 CAP TAB PO SCH (08:12)
[2020-02-24] MEDS: SERTRALINE HCL 50 MG TABLET PO SCH (08:13)
[2020-02-24] MEDS: PANTOPRAZOLE SODIUM 40 MG TABLET.DR PO SCH (08:13)
[2020-02-24] MEDS: CALCIUM ACETATE 667 MG CAPSULE PO SCH ×3 (08:13→16:27)
[2020-02-24] MEDS: ENOXAPARIN SODIUM 40 MG/0.4 ML SYRINGE SQ SCH (08:13)
[2020-02-24] MEDS: ZINC OXIDE OINT 60GM TUBE TP SCH (08:14)
[2020-02-24] MEDS: AMLODIPINE BESYLATE 5 MG TAB PO SCH (09:00)
[2020-02-24] MEDS: METOPROLOL TARTRATE 25 MG TAB PO SCH ×2 (09:00→21:31)
[2020-02-24 12:00] VITALS: BP 96/50
--- NOTE | 2020-02-24 13:38 | NUR ---
RD FOLLOW UP Notification for Pt with Nausea received 02/22. Pt currently with improved PO intake at 100% and no complaint of nausea as per RN. 75gm CC, Renal non-dialysis, NTL diet order in place. Generalized 3+ edema;diuretic in place. Excoriated perineum; Willy, Zinc oxide ointment in place for wound healing support. BMI 79.5, 204kg body weight. Recommend to add daily MVI and 500mg Vitamin C daily. Continue Willy and diet order Continue 1500ml Fluid restriction RD to continue to monitor. Please notify as additional nutrition concerns arise. Thank you.
[2020-02-24] MEDS ORDERED: BALSAM PERU/CASTOR OIL 60 GM TUBE TP SCH (14:15)
[2020-02-24 16:00] VITALS: BP 98/60
[2020-02-24 20:56] VITALS: BP 100/55
[2020-02-24] MEDS: FAMOTIDINE/PF 20 MG/2 ML VIAL IV SCH (21:30)
[2020-02-24] MEDS: DICYCLOMINE HCL 20 MG TAB PO SCH (21:31)
[2020-02-24] MEDS: HYDROMORPHONE HCL 0.5 MG/0.5 ML ML IVP PRN ×2 (22:19→23:32)
[2020-02-25] VITALS (9 sets, daily range): BP systolic 78–110; BP diastolic 41–88
[2020-02-25] MEDS: VANCOMYCIN 2 GM PO SCH ×10 (00:38→23:15)
[2020-02-25] MEDS: SODIUM CHLORIDE 0.9% PO SCH ×10 (00:38→23:15)
[2020-02-25] MEDS: FUROSEMIDE 10 MG/ML 2ML VIAL IVP SCH ×2 (03:53→15:34)
[2020-02-25 04:09] LABS: ABG BASE EXCESS -4.4 mmol/L (-2.0-3.0); ABG HCO3 20.9 mmol/L (21.0-28.0); ABG OXYGEN SATURATION 97.4 % (95.0-99.0); ABG PCO2 40 mmHg (32-45)
[2020-02-25 06:10] LABS: BASOPHILS % (AUTO) 0.2 % (0.0-5.0); EOSINOPHILS % (AUTO) 0.3 % (0.0-8.0); HEMATOCRIT 28.9 % (36-48); LYMPHOCYTES % (AUTO) 3.2 % (21.0-51.0); MEAN CORPUSCULAR HEMOGLOBIN 28.1 pg (27.0-33.0); MEAN CORPUSCULAR HGB CONC 33.9 g/dL (32.0-36.0); MEAN CORPUSCULAR VOLUME 82.8 fL (79-99); MONOCYTES % (AUTO) 1.7 % (3.0-13.0); NEUTROPHILS % (AUTO) 93.4 % (40.0-77.0); PLATELET COUNT (AUTO) 96 K/uL (130-400); RED BLOOD CELL COUNT(AUTO) 3.49 MIL/uL (4.00-5.50); RED CELL DISTRIBUTION WIDTH 16.8 % (11.0-15.5)
[2020-02-25 06:12] LABS: WHITE BLOOD COUNT (AUTO) 30.7 K/uL (4.8-10.8)
[2020-02-25] MEDS: PANTOPRAZOLE SODIUM 40 MG TABLET.DR PO SCH (06:12)
[2020-02-25] MEDS: INSULIN HUMULIN R 100 UNIT/ML 3ML SQ SCH ×4 (06:20→21:00)
[2020-02-25 06:36] LABS: ALBUMIN 0.8 g/dL (3.5-5.0); BILIRUBIN,DIRECT 1.4 mg/dL (0.0-0.3); BILIRUBIN,TOTAL 1.5 mg/dL (0.2-1.0); CREATININE 4.1 mg/dL (0.5-1.5); MAGNESIUM 1.8 mg/dL (1.80-2.40); PHOSPHORUS 6.5 mg/dL (2.5-4.9); POTASSIUM 4.2 mmol/L (3.5-5.1); TOTAL PROTEIN, SERUM 3.9 g/dL (6.0-8.3)
[2020-02-25 08:16] LABS: LYMPHOCYTES % (MANUAL) 2 % (22-44); MAN.DIFF COMMENT-IMPRESSION MANUAL DIFFERENTIAL; PLATELET MORPHOLOGY COMMENT DECREASED; SEGMENTED NEUTROPHILS % 98 % (40-70)
[2020-02-25] MEDS: METOPROLOL TARTRATE 25 MG TAB PO SCH ×2 (09:00→21:00)
[2020-02-25] MEDS: AMLODIPINE BESYLATE 5 MG TAB PO SCH (09:00)
[2020-02-25] MEDS: ENOXAPARIN SODIUM 40 MG/0.4 ML SYRINGE SQ SCH (09:00)
[2020-02-25] MEDS: ZINC OXIDE OINT 60GM TUBE TP SCH (09:00)
[2020-02-25] MEDS: SERTRALINE HCL 50 MG TABLET PO SCH (09:08)
[2020-02-25] MEDS: FOLIC ACID/VITAMIN B COMP W-C 1 CAP TAB PO SCH (09:08)
[2020-02-25] MEDS: CALCIUM ACETATE 667 MG CAPSULE PO SCH ×3 (09:08→17:28)
[2020-02-25 10:14] LABS: APPEARANCE,URINE TURBID (CLEAR); BILIRUBIN,URINE MODERATE (NEGATIVE); COLOR,URINE YELLOW (YELLOW); GLUCOSE, URINE (UA) NEGATIVE (NEGATIVE); KETONES,URINE NEGATIVE (NEGATIVE); LEUKOCYTE ESTERASE ,URINE MODERATE (NEGATIVE); NITRATE,URINE NEGATIVE (NEGATIVE); OCCULT BLOOD,URINE LARGE (NEGATIVE); PROTEIN,URINE 100 mg/dL (NEGATIVE); UROBILINOGEN,URINE 0.2 mg/dL (0.2-1.0)
[2020-02-25 10:31] LABS: BACTERIA,URINE Many /HPF (None Seen); MUCUS,URINE Many LPF (None Seen); SQUAMOUS EPITHELIAL CELL,UR Few /HPF (0-2); WBC,URINE TNTC /HPF (0-1)
[2020-02-25 10:32] LABS: YEAST,URINE BUDDING Moderate /HPF (None Seen)
[2020-02-25] MEDS: NYSTATIN 15 GM POWDER TP SCH ×2 (15:01→21:12)
[2020-02-25] MEDS: FLUCONAZOLE 200 MG/NS 100 ML 100 ML IV SCH (15:34)
[2020-02-25] MEDS: HYDROMORPHONE HCL 0.5 MG/0.5 ML ML IVP PRN (15:42)
[2020-02-25] MEDS ORDERED: SODIUM CHLORIDE 0.9% 500ML 500 ML IV ONE (20:15)
[2020-02-25] MEDS ORDERED: SODIUM CHLORIDE 0.9% 500ML 500 ML IV SCH ×2 (20:30→21:00)
[2020-02-25] MEDS: DICYCLOMINE HCL 20 MG TAB PO SCH (21:00)
[2020-02-25] MEDS: FAMOTIDINE/PF 20 MG/2 ML VIAL IV SCH (21:10)
[2020-02-25] MEDS: HEPARIN SODIUM 5000UNIT/ML 1ML VIAL SQ SCH (21:12)
[2020-02-25] MEDS ORDERED: ZOSYN 3.375GM+NS 50ML 50 ML IV SCH (22:00)
[2020-02-26] VITALS (89 sets, daily range): BP systolic 40–189; BP diastolic 13–142
[2020-02-26] MEDS ORDERED: FUROSEMIDE 10 MG/ML 2ML VIAL IVP SCH (04:15)
[2020-02-26 04:18] LABS: ABG BASE EXCESS -7.7 mmol/L (-2.0-3.0); ABG HCO3 18.5 mmol/L (21.0-28.0); ABG OXYGEN SATURATION 78.1 % (95.0-99.0); ABG PCO2 40 mmHg (32-45)
[2020-02-26 05:17] LABS: ABG BASE EXCESS -7.4 mmol/L (-2.0-3.0); ABG HCO3 19.2 mmol/L (21.0-28.0); ABG OXYGEN SATURATION 96.6 % (95.0-99.0); ABG PCO2 42 mmHg (32-45)
[2020-02-26] MEDS: SODIUM CHLORIDE 0.9% PO SCH ×8 (05:29→21:00)
[2020-02-26] MEDS: VANCOMYCIN 2 GM PO SCH ×8 (05:29→21:00)
[2020-02-26 06:07] LABS: HEMATOCRIT 29.2 % (36-48); MEAN CORPUSCULAR HEMOGLOBIN 28.1 pg (27.0-33.0); MEAN CORPUSCULAR HGB CONC 34.2 g/dL (32.0-36.0); PLATELET COUNT (AUTO) 79 K/uL (130-400); RED BLOOD CELL COUNT(AUTO) 3.56 MIL/uL (4.00-5.50); RED CELL DISTRIBUTION WIDTH 17.1 % (11.0-15.5)
[2020-02-26] MEDS: INSULIN HUMULIN R 100 UNIT/ML 3ML SQ SCH ×4 (06:18→20:36)
[2020-02-26] MEDS: HEPARIN SODIUM 5000UNIT/ML 1ML VIAL SQ SCH ×2 (06:18→17:55)
[2020-02-26 06:23] LABS: WHITE BLOOD COUNT (AUTO) 33.8 K/uL (4.8-10.8)
[2020-02-26 06:25] LABS: ALBUMIN 0.8 g/dL (3.5-5.0); BILIRUBIN,TOTAL 1.7 mg/dL (0.2-1.0); CREATININE 4.2 mg/dL (0.5-1.5); MAGNESIUM 1.9 mg/dL (1.80-2.40); PHOSPHORUS 7.2 mg/dL (2.5-4.9); POTASSIUM 4.6 mmol/L (3.5-5.1); TOTAL PROTEIN, SERUM 3.8 g/dL (6.0-8.3)
[2020-02-26 08:31] LABS: LYMPHOCYTES % (MANUAL) 3 % (22-44); MAN.DIFF COMMENT-IMPRESSION MANUAL DIFFERENTIAL; PLATELET MORPHOLOGY COMMENT DECREASED; SEGMENTED NEUTROPHILS % 97 % (40-70)
[2020-02-26] MEDS: METOPROLOL TARTRATE 25 MG TAB PO SCH (08:33)
[2020-02-26] MEDS: PANTOPRAZOLE SODIUM 40 MG TABLET.DR PO SCH (08:33)
[2020-02-26] MEDS: SERTRALINE HCL 50 MG TABLET PO SCH (08:33)
[2020-02-26] MEDS: FOLIC ACID/VITAMIN B COMP W-C 1 CAP TAB PO SCH (08:33)
[2020-02-26] MEDS: CALCIUM ACETATE 667 MG CAPSULE PO SCH ×3 (08:33→17:00)
[2020-02-26] MEDS: NYSTATIN 15 GM POWDER TP SCH ×2 (08:33→21:00)
[2020-02-26] MEDS: FLUCONAZOLE 200 MG/NS 100 ML 100 ML IV SCH (08:34)
[2020-02-26] MEDS ORDERED: ALBUMIN (HUMAN) 5% 250 ML IV SCH (09:00)
[2020-02-26] MEDS: MEROPENEM 500 MG VIAL IVP SCH ×2 (10:47→20:51)
--- NOTE | 2020-02-26 11:10 | NUR ---
TRANSFER Received as a transfer from room 416 to room 14 in day patient ICU. Upon arrival, pt lethargic but arousable with verbal stimulation. Focuses on caregiver and follow some simple commands. Bilateral hand baker test are equal, weak. Pt not able to tolerate movement of lower extremities secondary to pain with movement. Able to state name and age. SR on tele - distant heart tones. Skin is cool, moist. Very poor skin turgor throughout. Pt arrived with damp sheets - unable to safely turn pt for cleaning or repositioning secondary to current medical condition. Marginal NIBP. Pt arrived with SL to left upper chest wall - brisk blood return obtained and line flushed without difficulty. VS as recorded. F/C patent - light radha urine. Attempted to reorient/reassure pt. Assessment as recorded. Full assessment in regards to skin impairment will be deferred secondary to current state. Pt on NC O2 with diminished breath sounds to upper lobes. Unable to fully assess bases secondary to body habitus. 20ga SL inserted to RH x1 attempt using aseptic technique.
[2020-02-26] MEDS: NOREPINEPHRINE 4MG/NS 250ML 250 ML IV SCH ×3 (12:17→18:29)
--- NOTE | 2020-02-26 13:15 | NUR ---
STATUS/RESP ARREST. Pt non-responsive to verbal stimulation - no response to deep sternal rub. Current pulse oximeter reading 50%. Code blue activated. Pt oxygenated via BVM, 15L. Refer to code sheet.
--- NOTE | 2020-02-26 13:30 | NUR ---
DNR FORM OBTAINED DR Manasa MCGEE SPOKE WITH , JAMEY ROMO, VIA PHONE REGARDING PATIENT'S CURRENT STATUS AND PROGNOSIS DURING RESPIRATORY ARREST. DNR FORM OBTAINED WITH 2ND NURSE WITNESS YOGESH MEDINA AND PLACED IN CHART.
[2020-02-26] MEDS ORDERED: FENTANYL CITRATE PF 0.05 MG/ML 1,000 MCG in SODIUM CHLORIDE 0.9% 100 ML IVPB SCH (13:45)
[2020-02-26] MEDS ORDERED: PHARMACY COMMUNICATION MISC SCH ×2 (13:45→19:30)
[2020-02-26] MEDS: ARTIFICAL TEARS SOL 15 ML OU SCH ×2 (13:45→19:45)
[2020-02-26 13:54] LABS: HEMATOCRIT 37.3 % (36-48); MEAN CORPUSCULAR HEMOGLOBIN 28.3 pg (27.0-33.0); MEAN CORPUSCULAR HGB CONC 33.8 g/dL (32.0-36.0); MEAN CORPUSCULAR VOLUME 83.6 fL (79-99); PLATELET COUNT (AUTO) 102 K/uL (130-400); RED BLOOD CELL COUNT(AUTO) 4.46 MIL/uL (4.00-5.50); RED CELL DISTRIBUTION WIDTH 17.4 % (11.0-15.5)
[2020-02-26 14:06] LABS: WHITE BLOOD COUNT (AUTO) 46.6 K/uL (4.8-10.8)
[2020-02-26] MEDS ORDERED: COMPOUND PO MISCELLANEOUS 1 EACH MISC MISC PRN (14:15)
--- NOTE | 2020-02-26 14:15 | NUR ---
PT CARE 16ga external jugular PIV inserted by using aseptic technique.
[2020-02-26 14:24] LABS: ALBUMIN 0.9 g/dL (3.5-5.0); BILIRUBIN,TOTAL 2.1 mg/dL (0.2-1.0); CREATININE 4.3 mg/dL (0.5-1.5); POTASSIUM 4.8 mmol/L (3.5-5.1); TOTAL PROTEIN, SERUM 4.6 g/dL (6.0-8.3)
[2020-02-26 14:28] LABS: INR 1.84 (0.85-1.15); PARTIAL THROMBOPLASTIN TIME 66.5 SEC (26.3-35.5); PROTHROMBIN TIME 19.4 SEC (9.6-11.6)
--- NOTE | 2020-02-26 14:30 | NUR ---
FAMILY UPDATE Pt's spouse in to see pt - briefly updated. had just recently received phone update by at which time code status was established. DNR status confirmed with . Emotional support offered. Questions addressed. Pt does not appear to recognize spouse - no interaction.
[2020-02-26 14:37] LABS: ABG BASE EXCESS -7.6 mmol/L (-2.0-3.0); ABG HCO3 17.3 mmol/L (21.0-28.0); ABG OXYGEN SATURATION 99.8 % (95.0-99.0); ABG PCO2 34 mmHg (32-45)
[2020-02-26 14:45] LABS: BAND NEUTROPHILS % (MANUAL) 5 % (0-2); LYMPHOCYTES % (MANUAL) 3 % (22-44); MAN.DIFF COMMENT-IMPRESSION MANUAL DIFFERENTIAL; SEGMENTED NEUTROPHILS % 92 % (40-70)
[2020-02-26 14:48] LABS: PLATELET MORPHOLOGY COMMENT PLT CLUMPS
[2020-02-26] MEDS: VANCOMYCIN 250MG/5ML ORAL SOLUTION 40ML NG SCH ×4 (15:03→21:05)
--- NOTE | 2020-02-26 16:42 | NUR ---
MD UPDATE updated on pt's status, including current meds and ABG results.
[2020-02-26] MEDS: DEXTROSE 50%-WATER 50 ML DISP.SYRIN IV PRN (17:05)
--- NOTE | 2020-02-26 17:40 | NUR ---
MD UPDATE updated on pt's status - pending receipt of additional orders.
[2020-02-26] MEDS ORDERED: SODIUM BICARB 50MEQ 50ML VIAL ONE (18:16)
[2020-02-26] MEDS ORDERED: SODIUM BICARB 50MEQ 50ML VIAL IV SCH (18:30)
[2020-02-26] MEDS: EPINEPHRINE 10 MG in SODIUM CHLORIDE 0.9% 240 ML IV PRN (19:27)
[2020-02-26] MEDS ORDERED: MIDAZOLAM 100MG-0.9% NS 100ML 50 ML IV PRN (20:00)
[2020-02-26] MEDS ORDERED: PROPOFOL 1000 MG/100 ML 100 ML IV SCH (20:00)
--- NOTE | 2020-02-26 20:02 | NUR ---
UPDATE PAGED B[employer]CHMARK SERVICES SPOKE WITH NICCI MADISON NP UPDATE ON PT CONDITION CODE STATUS AND V/S. UNABLE TO GET BLOOD PRESSURE ON MULTIPLE PRESSORS PT CODE NEEDED TO BE INTUBATED IN AM UNABLE TO BE SEDATED DUE TO LOW BP. NEW ORDERS RECEIVED AND CARRIED OUT.
[2020-02-26] MEDS: NOREPINEPHRINE BITARTRATE 32 MG in SODIUM CHLORIDE 0.9% 250 ML IV SCH (20:35)
[2020-02-26] MEDS: DICYCLOMINE HCL 20 MG TAB PO SCH (20:51)
[2020-02-26] MEDS: CHLORHEXIDINE GLUCONATE 473 ML MOUTHWASH MM SCH (20:52)
[2020-02-26] MEDS: FAMOTIDINE/PF 20 MG/2 ML VIAL IV SCH (20:52)
[2020-02-26] MEDS: VASOPRESSIN 40 UNITS in SODIUM CHLORIDE 0.9% 40 ML IV PRN (21:49)
--- NOTE | 2020-02-26 23:15 | NUR ---
UPDATE [facility] UPDATED FAMILIA DUONG PATCH SANDER AT THE BEDSIDE OF PT CONDITION AND CODE STATUS V/S MEDICATION. MADE AWARE PT RESTLESS ON VENTILATOR UNABLE TO SEDATE OR OBTAIN BLOOD PRESSURE WHILE ON MULTIPLE PRESSORS. NO NEW ORDERS RECEIVED.
[2020-02-27] VITALS (9 sets, daily range): BP systolic 40–148; BP diastolic 11–118
[2020-02-27] MEDS: SODIUM CHLORIDE 0.9% PO SCH ×4 (00:32→06:46)
[2020-02-27] MEDS: VANCOMYCIN 2 GM PO SCH ×4 (00:32→06:46)
[2020-02-27] MEDS: NOREPINEPHRINE BITARTRATE 32 MG in SODIUM CHLORIDE 0.9% 250 ML IV SCH ×3 (01:24→07:27)
[2020-02-27] MEDS: EPINEPHRINE 10 MG in SODIUM CHLORIDE 0.9% 240 ML IV PRN ×4 (01:25→09:12)
[2020-02-27] MEDS: ARTIFICAL TEARS SOL 15 ML OU SCH ×2 (01:45→09:53)
[2020-02-27] MEDS ORDERED: EPINEPHRINE 1 MG/ML 30ML VIAL IJ ONE (02:50)
[2020-02-27] MEDS ORDERED: SODIUM CHLORIDE 0.9% 750 ML IV ONE (02:55)
--- NOTE | 2020-02-27 03:00 | NUR ---
TOSJosé Miguel 0300 INITIAL CALL MADE TO GOPAL SPOKE WITH TRAVIS ALLEN REF # [id number] RECEIVED CALL FROM GOPAL MACARIO WITH [facility] UPDATED ON PT HOSPITAL VISIT, PT HISTORY, CURRENT CONDITION AND CURRENT IV DRIPS. PT CASE RULED OUT AND CASE CLOSED.
[2020-02-27] MEDS: VANCOMYCIN 250MG/5ML ORAL SOLUTION 40ML NG SCH ×4 (03:56→08:10)
[2020-02-27 04:39] LABS: ABG BASE EXCESS -23.3 mmol/L (-2.0-3.0); ABG HCO3 10.5 mmol/L (21.0-28.0); ABG OXYGEN SATURATION 26.2 % (95.0-99.0); ABG PCO2 58 mmHg (32-45)
[2020-02-27] MEDS ORDERED: SODIUM BICARB 50MEQ 50ML VIAL ONE ×2 (04:52→05:14)
[2020-02-27] MEDS ORDERED: SODIUM BICARB 8.4% 50ML SYRINGE IVP SCH ×2 (05:15)
[2020-02-27] MEDS: DEXTROSE 50%-WATER 50 ML DISP.SYRIN IV PRN ×5 (05:26→10:27)
[2020-02-27] MEDS ORDERED: SODIUM BICARB 50MEQ 50ML VIAL IV ONE (05:45)
[2020-02-27] MEDS: HEPARIN SODIUM 5000UNIT/ML 1ML VIAL SQ SCH (06:30)
[2020-02-27] MEDS: INSULIN HUMULIN R 100 UNIT/ML 3ML SQ SCH ×2 (07:13→10:23)
[2020-02-27] MEDS: CALCIUM ACETATE 667 MG CAPSULE PO SCH ×2 (07:24→11:02)
[2020-02-27] MEDS: FLUCONAZOLE 200 MG/NS 100 ML 100 ML IV SCH (08:08)
[2020-02-27] MEDS: MEROPENEM 500 MG VIAL IVP SCH (08:08)
[2020-02-27] MEDS: SERTRALINE HCL 50 MG TABLET PO SCH (08:09)
[2020-02-27] MEDS: NYSTATIN 15 GM POWDER TP SCH (08:09)
[2020-02-27] MEDS: FOLIC ACID/VITAMIN B COMP W-C 1 CAP TAB PO SCH (08:09)
[2020-02-27] MEDS: CHLORHEXIDINE GLUCONATE 473 ML MOUTHWASH MM SCH (08:10)
--- NOTE | 2020-02-27 08:25 | NUR ---
Patient's and Dr Evans updated on patient's condition, unable to get blood pressure, already maxed out on Pressors, O2 sats 74-77%, remains DNR status, Vented, FIO2 at 100%, agonal breathing noted, no new orders given at this time.
[2020-02-27] MEDS ORDERED: PANTOPRAZOLE 40 MG/VIAL IVP SCH (09:00)
[2020-02-27] MEDS ORDERED: SODIUM CHLORIDE 0.9% IV SCH ×2 (09:30)
[2020-02-27] MEDS ORDERED: NOREPINEPHRINE BITARTRATE IV SCH (09:30)
[2020-02-27] MEDS ORDERED: EPINEPHRINE IV SCH (09:30)
--- NOTE | 2020-02-27 09:45 | NUR ---
Dr Dumont updated via phone regarding glucose level of 23, 1 Amp of D50%given, repeat glucose level 47 at 0930, an extra amp of D50% given, will repeat glucose check. MD also made aware about pt's being at bedside and may decide to withdraw care after patient's Mother comes and visits today, already approved per [facility]. No new orders given at this time
[2020-02-27] MEDS ORDERED: DEXTROSE 10%-WATER 1,000 ML IV ONE (10:13)
[2020-02-27] MEDS ORDERED: DEXTROSE 10%-WATER 1,000 ML IV SCH (10:15)
[2020-02-27] MEDS: VASOPRESSIN 40 UNITS in SODIUM CHLORIDE 0.9% 40 ML IV PRN (10:17)
--- NOTE | 2020-02-27 10:30 | NUR ---
New orders given for CT Head and to consult Dr Murry, Dr Dumont made aware about pt's current condition, MD instructed to hold CT for now, since pt remains with low O2 sats
--- NOTE | 2020-02-27 10:35 | NUR ---
Dr Murry notified via phone about new consult
--- NOTE | 2020-02-27 10:50 | NUR ---
Dr Murry at bedside, no new orders given, MD aware about pt too unstable for CT Head, remains DNR status
--- NOTE | 2020-02-27 11:13 | NUR ---
FOLLOW UP COMPLETED. Pt CURRENTLY NPO, INTUBATED. DISCHARGE FROM SKILLED SPEECH THERAPY AT THIS TIME. Addendum: 02/27/20 at 1128 by JULIANA DIXON, [facility] Amended: Links added.
--- NOTE | 2020-02-27 11:15 | NUR ---
Regina Becerra, FOUNDER for [employer] at bedside, no new orders given
--- NOTE | 2020-02-27 11:45 | NUR ---
Obtained withdrawal of Life support Form signed per patient's , via phone, witnessed per Alexandra Friend RN, Dr Dumont notified and new orders given to extubate patient, discontinue all medications, except for Morphine and Ativan, patient to receive comfort measures, as requested per patient's .
[2020-02-27] MEDS ORDERED: SODIUM CHLORIDE 0.9% NG SCH ×2 (12:00)
[2020-02-27] MEDS ORDERED: LORAZEPAM 2 MG/ML 1 ML VIAL IVP PRN (12:00)
[2020-02-27] MEDS ORDERED: VANCOMYCIN 2 GM NG SCH ×2 (12:00)
[2020-02-27] MEDS ORDERED: MORPHINE SULFATE 2 MG/ML 1ML SYG IVP PRN (12:00)
--- NOTE | 2020-02-27 12:14 | NUR ---
Extubated at this time per Miranda Reddy,RT, as part of the withdrawal of life support, placed on 2 liters via nasal cannula
--- NOTE | 2020-02-27 12:34 | NUR ---
Noted with agonal breathing, administered 2 MG of Morphine IV, HR 66, no B/P noted,O2 noted at 60%
--- NOTE | 2020-02-27 12:35 | NUR ---
Dr Wilcox at bedside, MD updated with latest orders of withdrawal of care and extubation time
--- NOTE | 2020-02-27 12:55 | NUR ---
Noted with no apical pulse, no peripheral pulses, no breath sounds bilaterally, noted to be asystole, as per die repairer forging. Satish. pupils diated and fixed. Pronouncement of witnessed per ADAM Escobedo [facility].
--- NOTE | 2020-02-27 12:57 | NUR ---
Dr Dumont notified about patient expiring
--- NOTE | 2020-02-27 12:59 | NUR ---
Notified patient's about patient's , he has chosen [facility] in [place]
--- NOTE | 2020-02-27 13:06 | NUR ---
Notified Dr Evans about patient's
--- NOTE | 2020-02-27 13:10 | NUR ---
Luz HERRON with patient time of .
--- NOTE | 2020-02-27 13:25 | NUR ---
per Linda, from [facility], patient has been ruled out due to elevated WBC's
--- NOTE | 2020-02-27 13:50 | NUR ---
Postmortem care provided at this time.
== END 2020-02-27 12:55 | disposition expired | DRG 720 ==
LOC: EDH 12:06 → EDHIP 12:07 → 4DH 17:14 → 3CH 02-13 19:01 → DAHIP 02-14 01:49 → 4CH 02-18 15:41 → DAHIP 02-26 11:13
PROVIDERS: ADMIT Hospitalist; ATTEND Hospitalist
PROC: 5A09357 Assistance with Respiratory Ventilation, Less than 24 Consecutive Hours, Continuous Positive Airway Pressure (ICD-10-PCS; 2020-02-05)
PROC: 5A09357 Assistance with Respiratory Ventilation, Less than 24 Consecutive Hours, Continuous Positive Airway Pressure (ICD-10-PCS; 2020-02-06)
PROC: 5A09357 Assistance with Respiratory Ventilation, Less than 24 Consecutive Hours, Continuous Positive Airway Pressure (ICD-10-PCS; 2020-02-07)
PROC: 5A09357 Assistance with Respiratory Ventilation, Less than 24 Consecutive Hours, Continuous Positive Airway Pressure (ICD-10-PCS; 2020-02-08)
PROC: 5A09357 Assistance with Respiratory Ventilation, Less than 24 Consecutive Hours, Continuous Positive Airway Pressure (ICD-10-PCS; 2020-02-09)
PROC: 5A09357 Assistance with Respiratory Ventilation, Less than 24 Consecutive Hours, Continuous Positive Airway Pressure (ICD-10-PCS; 2020-02-10)
PROC: 5A09357 Assistance with Respiratory Ventilation, Less than 24 Consecutive Hours, Continuous Positive Airway Pressure (ICD-10-PCS; 2020-02-11)
PROC: 5A09357 Assistance with Respiratory Ventilation, Less than 24 Consecutive Hours, Continuous Positive Airway Pressure (ICD-10-PCS; 2020-02-13)
PROC: 5A09457 Assistance with Respiratory Ventilation, 24-96 Consecutive Hours, Continuous Positive Airway Pressure (ICD-10-PCS; 2020-02-14)
PROC: 5A09357 Assistance with Respiratory Ventilation, Less than 24 Consecutive Hours, Continuous Positive Airway Pressure (ICD-10-PCS; 2020-02-16)
PROC: 5A09357 Assistance with Respiratory Ventilation, Less than 24 Consecutive Hours, Continuous Positive Airway Pressure (ICD-10-PCS; 2020-02-17)
PROC: 5A09357 Assistance with Respiratory Ventilation, Less than 24 Consecutive Hours, Continuous Positive Airway Pressure (ICD-10-PCS; 2020-02-18)
PROC: 5A09357 Assistance with Respiratory Ventilation, Less than 24 Consecutive Hours, Continuous Positive Airway Pressure (ICD-10-PCS; 2020-02-19)
PROC: 5A09357 Assistance with Respiratory Ventilation, Less than 24 Consecutive Hours, Continuous Positive Airway Pressure (ICD-10-PCS; 2020-02-20)
PROC: 5A09357 Assistance with Respiratory Ventilation, Less than 24 Consecutive Hours, Continuous Positive Airway Pressure (ICD-10-PCS; 2020-02-21)
PROC: 5A09357 Assistance with Respiratory Ventilation, Less than 24 Consecutive Hours, Continuous Positive Airway Pressure (ICD-10-PCS; 2020-02-22)
PROC: 5A09357 Assistance with Respiratory Ventilation, Less than 24 Consecutive Hours, Continuous Positive Airway Pressure (ICD-10-PCS; 2020-02-23)
PROC: 5A1935Z Respiratory Ventilation, Less than 24 Consecutive Hours (ICD-10-PCS; principal; 2020-02-26)
PROC: 0BH17EZ Insertion of Endotracheal Airway into Trachea, Via Natural or Artificial Opening (ICD-10-PCS; 2020-02-26)
DX: A41.9 Sepsis, unspecified organism (principal); J96.21 Acute and chronic respiratory failure with hypoxia; I13.0 Hypertensive heart and chronic kidney disease with heart failure and stage 1 through stage 4 chronic kidney disease, or unspecified chronic kidney disease; D64.9 Anemia, unspecified; I50.33 Acute on chronic diastolic (congestive) heart failure; J90 Pleural effusion, not elsewhere classified; N17.9 Acute kidney failure, unspecified; N18.9 Chronic kidney disease, unspecified; N39.0 Urinary tract infection, site not specified; A04.72 Enterocolitis due to Clostridium difficile, not specified as recurrent; G93.41 Metabolic encephalopathy; Z68.42 Body mass index [BMI] 45.0-49.9, adult; B35.9 Dermatophytosis, unspecified; B96.1 Klebsiella pneumoniae [K. pneumoniae] as the cause of diseases classified elsewhere; D69.59 Other secondary thrombocytopenia; E11.22 Type 2 diabetes mellitus with diabetic chronic kidney disease; E66.2 Morbid (severe) obesity with alveolar hypoventilation; E78.5 Hyperlipidemia, unspecified; E83.39 Other disorders of phosphorus metabolism; E87.4 Mixed disorder of acid-base balance; F41.8 Other specified anxiety disorders; G89.29 Other chronic pain; I08.0 Rheumatic disorders of both mitral and aortic valves; I31.3 Pericardial effusion (noninflammatory); J18.9 Pneumonia, unspecified organism; J96.22 Acute and chronic respiratory failure with hypercapnia; K29.70 Gastritis, unspecified, without bleeding; L03.311 Cellulitis of abdominal wall; L89.302 Pressure ulcer of unspecified buttock, stage 2; N04.9 Nephrotic syndrome with unspecified morphologic changes; R65.21 Severe sepsis with septic shock; Z20.828 Contact with and (suspected) exposure to other viral communicable diseases; S30.814A Abrasion of vagina and vulva, initial encounter; Z16.12 Extended spectrum beta lactamase (ESBL) resistance; Z16.24 Resistance to multiple antibiotics; Y93.89 Activity, other specified; Y92.89 Other specified places as the place of occurrence of the external cause; Y99.8 Other external cause status; Z88.2 Allergy status to sulfonamides; Z88.8 Allergy status to other drugs, medicaments and biological substances; Z74.01 Bed confinement status; Z79.899 Other long term (current) drug therapy; Z91.19 Patient's noncompliance with other medical treatment and regimen; Z91.14 Patient's other noncompliance with medication regimen; Z87.441 Personal history of nephrotic syndrome; Z86.19 Personal history of other infectious and parasitic diseases; Z83.3 Family history of diabetes mellitus; Z82.49 Family history of ischemic heart disease and other diseases of the circulatory system
CPT/HCPCS: 31500; 36415; 36600; 71045; 71250; 80048; 80053; 80076; 81001; 82306; 82550; 82570; 82728; 82803; 82948; 83540; 83550; 83605; 83615; 83735; 83880; 84100; 84145; 84156; 84484; 84550; 85025; 85027; 85378; 85610; 85730; 86140; 86850; 86900; 86901; 87040; 87046; 87077; 87088; 87186; 87324; 87426; 87507; 92610; 92950; 93005; 93306; 93356; 94002; 94003; 94660; A4344; C9113; G0378; J0171; J1170; J1450; J1644; J1650; J1756; J1815; J1940; J1956; J2060; J2185; J2250; J2405; J2543; J2550; J3370; J3475; J3490; J7040; J7050; J7070; U0003